=== PATIENT | female | born 1975 | race Caucasian/White ===

== ENCOUNTER 2022-08-08 08:57 | Outpatient (CLI) | payer OTHER, SELFPAY ==
--- NOTE | ~2022-08-08 | MR_ITS ---
MRI of the brain Clinical History: Headache Technique: Axial and sagittal T1-weighted images were acquired. These were followed by axial T2-weigh pillo, diffusion weighted, gradient, and FLAIR images. Findings: No abnormal signal seen in the brain parenchyma. No acute infarct, intracranial hemorrhage, or mass lesion. Ventricles and subarachnoid spaces are unremarkable. Orbits are unremarkable. There is left maxillary sinus disease and bilateral ethmoid sinus disease. There is fluid in bilateral mastoid air cells. Ma timbo intracranial flow voids are intact. Sagittal midline structures are intact. IMPRESSION: No intracranial abnormality. Sinus disease and bilateral mastoid effusions, as detailed above. Reviewed, dictated and finalized at location . UCTION LINE SOLDERER
== END 2022-08-08 08:58 | disposition home or self-care (01) ==
PROVIDERS: PCP Internal Medicine Gastroenterology; Visit Provider Student in an Organized Health Care Education/Training Program
DX: G43.909 Migraine, unspecified, not intractable, without status migrainosus (principal); J32.2 Chronic ethmoidal sinusitis; J32.0 Chronic maxillary sinusitis
CPT/HCPCS: 70551

== ENCOUNTER 2024-01-14 07:44 | Outpatient (CLI) | payer BC, SELFPAY ==
--- NOTE | ~2024-01-14 | MR_ITS ---
EXAMINATION: MR brain/brain stem wo con DATE: 01/14/2024 08:24 INDICATION: Personal history of other healed physical injury. Migraine headache. Syncope. TECHNIQUE: Magnetic resonance imaging (MRI) of the brain and brainstem was performed without intraven ous contrast. COMPARISON: Brain MRI 08/08/2022 FINDINGS: There is no intracranial hemorrhage, acute infarction, or abnormal intracranial mass lesion . The ventricles are normal in size. There is a mucous retention cyst in right maxillary sinus. The o rbits are normal. The mastoid air cells are normal. IMPRESSION: 1. Normal brain. Reviewed, dictated and finalized at location A. IMPRESSION: 1. Normal brain.
== END 2024-01-14 07:45 | disposition home or self-care (01) ==
PROVIDERS: PCP Internal Medicine Gastroenterology; Visit Provider Psychiatry & Neurology Neurology
DX: Z87.828 Personal history of other (healed) physical injury and trauma (principal)
CPT/HCPCS: 70551

== ENCOUNTER 2024-02-01 08:54 | Outpatient (CLI) | payer BC, SELFPAY ==
--- NOTE | 2024-02-01 08:58 | ECHO_ITS ---
Patient Info Name: Una Nye Age: 49 years : 1975 Gender: Female Ht: 67 in Wt: 138 lbs BSA: 1.72 m2 HR: 85 bpm BP: 113 / 81 mmHg Technical Quality: Good Exam Date: 02/01/2024 9:10 AM Exam Location: Echo Lab Patient Status: Outpatient Admit Date: 02/01/2024 Staff Ordering Physician: Tomas Garcia DO Bonbon Dipper: Steffany Nunes RDCS Attending Provider: Tomas Garcia DO Referring Physician: Jose AVALOS; Exam Type: CA echo doppler color flow Study Info Indications R55 - Syncope and collapse Complete two-dimensional, color flow and Doppler transthoracic echocardiogram is performed. Strain analysis performed. Summary 1. Complete two-dimensional, color flow and Doppler transthoracic echocardiogram is performed. 2. Left ventricular chamber dimension is normal. 3. Left ventricular systolic function is normal, estimated at 60-65%. 4. The left ventricular diastolic function is normal. 5. E/e' 6 is not elevated. 6. Global longitudinal strain is normal at -18.8%. 7. There is trace tricuspid valve regurgitation. 8. RVSP is not calcuated due to an inadequate TR jet. 9. Aortic arch has a linear structure seen which could be artifact and less likely dissection. Consider CTA of aorta if clinically indicated. Left Ventricle E/e' 6 is not elevated. Global longitudinal strain is normal at -18.8%. Left ventricular chamber dimension is normal. Left ventricular systolic function is normal, estimated at 60-65%. The left ventricular diastolic function is normal. Right Ventricle Right ventricular chamber dimension is normal. Right ventricular systolic function is normal. Left Atria Left atrial chamber dimension is normal. Right Atria Right atrial chamber dimension is normal. Aortic Valve The aortic valve is trileaflet. There is no aortic valve stenosis. There is no aortic valve regurgitation. Pulmonic Valve There is no pulmonic regurgitation. Mitral Valve There is no mitral valve stenosis. There is no mitral valve regurgitation. Tricuspid Valve There is trace tricuspid valve regurgitation. RVSP is not calcuated due to an inadequate TR jet. Pericardium/Pleural There is no pericardial effusion. Inferior Vena Cava Normal inferior vena cava with >50% collapse upon inspiration consistent with normal right atrial pressure, 5 mmHg. Aorta Aortic arch has a linear structure seen which could be artifact and less likely dissection. Consider CTA of aorta if clinically indicated. The aortic root size at the sinus of Valsalva is normal. Left Ventricular Outflow Tract Name Value Normal LVOT 2D LVOT Diameter 2.0 cm LVOT Doppler LVOT Peak Gradient 4 mmHg LVOT Mean Gradient 3 mmHg LVOT VTI 19 cm LVOT VTI/AV VTI Ratio 0.9 LVOT Stroke Volume 63 ml LVOT CO 4.9 l/min LVOT CI 2.9 l/min/m2 Pulmonic Valve Name Value Normal
== END 2024-02-01 08:55 | disposition home or self-care (01) ==
LOC: ANHCARD 08:56
PROVIDERS: PCP Internal Medicine Gastroenterology; Visit Provider Internal Medicine Cardiovascular Disease
DX: R55 Syncope and collapse (principal)
CPT/HCPCS: 93306

== ENCOUNTER 2024-03-06 10:16 | Outpatient (CLI) | payer BC, SELFPAY ==
--- NOTE | ~2024-03-06 | CT_ITS ---
EXAMINATION: CTA chest DATE: 03/06/2024 11:14 INDICATION: Congenital malformation of the aorta, unspecified. TECHNIQUE: Computed tomographic angiography (CTA) of the chest was performed with 100 mL Omnipaque-35 0 intravenous contrast. Automated exposure control and iterative reconstruction technique were employ ed. The dose-length product was 169.92 mGy-cm. Maximum intensity projection 3D-reconstructions of the aorta and other arteries were constructed by the technologist on a separate workstation. COMPARISON: None. FINDINGS: The lungs demonstrate mild atelectasis. No pleural effusion. There are nodules in the thyro id measuring up to 18 mm on the left. There are size is normal. No pericardial effusion. Thoracic aor ta is normal in caliber. There are changes of cholecystectomy. There is no pulmonary embolus. There i s mild thoracic spondylosis. IMPRESSION: 1. Normal aorta. 2. Multinodular goiter. Consider thyroid ultrasound for risk stratification. Reviewed, dictated and finalized at location A.
== END 2024-03-06 10:17 | disposition home or self-care (01) ==
LOC: ANHIMG 10:18
PROVIDERS: PCP Internal Medicine Gastroenterology; Visit Provider Internal Medicine Cardiovascular Disease
DX: Q25.40 Congenital malformation of aorta unspecified (principal)
CPT/HCPCS: 71275; Q9967

== ENCOUNTER 2024-11-07 07:34 | Outpatient (CLI) | payer BC, SELFPAY ==
--- NOTE | ~2024-11-07 | MM_ITS ---
EXAMINATION: MM screening vin BI w anthony HISTORY: Screening TECHNIQUE: Craniocaudal and mediolateral oblique 3-D tomosynthesis images were obtained and synthetic 2-D images were generated. CAD analysis was submitted and interpreted. COMPARISON: No prior mammogram is available for comparison at this institution. BREAST PARENCHYMAL COMPOSITION: Dense: The breasts are heterogeneously dense, which may obscure small masses FINDINGS: There is no evidence of suspicious mass, calcification, or architectural distortion to sugg est malignancy in either breast. There has been no suspicious interval change. IMPRESSION: 1. No mammographic evidence of malignancy. 2. Recommend routine screening mammography in one year. BI-RADS Category 1: Negative Reviewed, dictated and finalized at location []
--- OUTSIDE RECORDS SUMMARY | 2024-11-07 07:40 | XMS_ITS | Clinical Summary ---
Author Organization [facility] Address [address] [place] [address] Care Team Providers Care Senior Customer Service Representative Name Role Phone Micki Manzano MD Primary Care Provider Allergies No known active allergies Medications acetaminophen (TYLENOL) 325 mg tablet Take 2 tablets (650 mg total) by mouth every 4 (four) hours as needed for pain or fever 30 tablet 1 Active albuterol HFA (PROVENTIL HFA,VENTOLIN HFA,PROAIR HFA) 90 mcg/actuation inhaler Inhale 2 puffs every 4 (four) hours as needed for wheezing or shortness of breath 1 each 3 Active lidocaine (LIDODERM) 5 %Indications:Pa in Place 1 patch on the skin daily Use patch for 12 hours on, 12 hours off. 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/2013 Overview (09/20/2016): NONTOX NODUL GOITER NOS Surgical History Surgery Date Site/Laterality Comments CHOLECYSTECTOMY 2008 Cholecystectomy Medical History Medical History Date Comments Hx Other Medical Hx Other Medical Acute Pancreati tis Anxiety disorder Anxiety Depression Depression Family History Medical History Relation Name Comments Diabetes type II Other Family hist ory of Diabetes -Type 2; Thyroid disease Other Family histo ry of Thyroid disorder; Relation Name Status Comments Other Social History Tobacco Use Types Packs/Day Years Used Date Smoking Tobacco: Every Day Cigarettes Tobacco Cessation:Ready to Q uit: Not Asked; Counseling Given: Not Answered Alcohol Use Standard Drinks/Week Comments No 0 (1 standard drink = 0.6 oz pur e alcohol) Personal Safety Answer Date Recorded Have you ever been in or are you currently in a harmful physical or emotional relationship or is someone making you feel afraid or unsafe? 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 Gender Identity Not on file Sexual Orientation Not on file Obstetrics History Last Filed Vital Signs Vital Sign Reading Time Taken Comments Blood Pressure 94/53 01/06/2024 1:50 AM CDT Pulse 76 01/06/2024 1:50 AM CDT Temperature 36.5 C (97.7 F) 01/05/2024 10:03 PM CDT Respiratory Rate 9 01/06/2024 1:50 AM CDT Oxygen Saturation 95% 01/06/2024 1:50 AM CDT Inhaled Oxygen Concentration - - Weight 64.1 kg (141 lb 5 oz) 01/05/2024 10:03 PM CDT Height 170.2 cm (5' 7 ) 08/29/2023 4:52 PM CDT Body Mass Index 22.13 08/29/2023 4:52 PM CDT Plan of Treatment Health Maintenance Due Date Last Done Comments Breast Cancer Screening-Mammogram 1975 Cervical Cancer Screening 1975 Colon Cancer Screening-Colonoscopy 1975 Depression Screening 1975 Hepatitis C Screening 1975 Regular Well Visit/Exam 18-64 01/24/1992 Pneumococcal vaccine <65 (1 of 2 - PCV) 1993 Zoster Vaccine (1 of 2) 01/24/2024 Covid-19 Vaccine ( season) 2024, 08/24/2020 Influenza Vaccine (Season Ended) 2025 03/28/20, 03/13/2017 DTaP/Tdap/Td Vaccine (3 - Td or Tdap) 09/22/202711/2017, 08/21/2017 Hepatitis B Screening Completed 09/21/2017 Insurance Local Magnet [employer] [facility] Local Magnet PA [facility] Care Teams Senior Customer Service Representative Relationship Specialty Start Date End Date Micki Maznano MD [address] [place] [id number] PCP - General Gastroenterology 01/29/22
--- OUTSIDE RECORDS SUMMARY | 2024-11-07 07:40 | XMS_ITS | Encounter Summary ---
Author Organization [facility] Address [address] [place] [address] Phone Care Team Providers Care Voip Network Engineer Name Role Phone Micki Manzano MD Primary Care Provider Rich Miller MD Unavailable [phone] Reason for Visit * Reason Comments Medication Refill Encounter Details Date Type Department Care Team (Late st Contact Info) Description 06/14/2022 Refill [facility] [address] [address] Rich Miller MD [address] [place] [address] Medication Refill Social History Tobacco Use Types Packs/Day Years Used Date Smoking Tobacco: Every Day Cigarettes Smokeless Tobacco: Never Alcohol Use Standard Drinks/Week Comments Not Currently 0 (1 standard drink = 0.6 oz pur e alcohol) Comments Unknown Sex and Gender Information Value Date Recorded Sex Assigned at Not on file Legal Sex Female 6:40 PM CDT Gender Identity Not on file Sexual Orientation Not on file COVID-19 Exposure Response Date Recorded In the last 10 days, have yo u been in contact with someone who was confirmed or suspected to have Coronavirus/COVID-19? No / Unsure 06/07/2022 11:16 AM SKEET OPERATOR documented as of this encounter Miscellaneous Notes * Telephone Encounter - Chanel Suárez RN - 06/14/2022 2:15 PM CST Refill request from pharmacy, please fill if appropriate T OPERATOR documented in this encounter Plan of Treatment Not on file documented as of this encounter Visit Diagnoses Not on filedocumented in this encounter Care Teams Voip Network Engineer Relationship Specialty Start Date End Date Micki Manzano MD [address] [place] [address] PCP - General Internal Medicine 03/08/22 Rich Miller MD [address] [place] [phone] Consulting Physician Oncology 03/30/22 documented as of this encounter
--- OUTSIDE RECORDS SUMMARY | 2024-11-07 07:40 | XMS_ITS | Referral Summary ---
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 Gender Identity Not on file Sexual Orientation Not on file Last Filed Vital Signs Vital Sign Reading [...] 08/29/2023 4:52 PM CDT Plan of Treatment Not on file [place] [address] [facility] [place] Sub[place] Plan / Payer (Ef fective 2022-Present) Name:Una Nye Relation to Subscriber:Spouse Name:FARHAN JONES Date of :1970 (Home) Address: [address] [place] [address] Payer ID:[id number] (NAIC) Type: OTHER Address: [address] [place] [phone] Care Teams Glycerin Operator Relationship Specialty [place] [address] [place], [place] [phone] PCP - General Gastroenterology 01/29/22
--- OUTSIDE RECORDS SUMMARY | 2024-11-07 07:41 | XMS_ITS | Encounter Summary ---
Author Organization [facility] [[email or web address]] Address [address] [place] [address] Phone Care Team Providers Care Ballpoint Pens Assembler Name Role Phone Micki Manzano MD Primary Care Provider Rich Miller MD Unavailable [phone] Reason for Visit * Reason Comments Medication Refill Encounter Details Date Type Department Care Team (Late st Contact Info) Description 06/18/2023 Refill [facility] [address] [place] [address] Rich Miller MD [address] [place] [phone] Medication Refill Social History Tobacco Use [...] on file Sexual Orientation Not on file documented as of this encounter Miscellaneous Notes * Telephone Encounter - Chanel Suárez RN - 06/19/2023 8:04 AM CST Refill request from pharmacy. Please fill if appropriate. No appointment ET DEVELOPMENT ANALYST documented in this encounter Plan of Treatment Not on file documented as of this encounter Visit Diagnoses Not on filedocumented in this encounter Care Teams Ballpoint Pens Assembler Relationship Specialty Start Date End Date Micki Manzano MD [address] [place] [address] PCP - General Internal Medicine 03/08/22 Rich Miller MD [address] [place] [phone] Consulting Physician Oncology 03/30/22 documented as of this encounter
--- OUTSIDE RECORDS SUMMARY | 2024-11-07 07:41 | XMS_ITS | Encounter Summary ---
Author Organization [facility] Address [address] [place] [address] Phone Care Team Providers Care Water Taxi Boat Mate Name Role Phone Micki Manzano MD Primary Care Provider Rich Miller MD Unavailable [phone] Reason for Visit * Reason Comments Medication Refill Encounter Details Date Type Department Care Team (Late st Contact Info) Description 11/06/2023 Refill [facility] [address] [address] Rich Miller MD [address] [place] [phone] Medication Refill Social History Tobacco Use [...] encounter Miscellaneous Notes * Telephone Encounter - Lulu Jacobs RN - 11/06/2023 12:04 PM CDT Refill request from pharmacy. Patient has not been in clinic since August with no follow-up scheduled. documented in this encounter Plan of Treatment Not on file documented as of this encounter Visit Diagnoses Not on filedocumented in this encounter Care Teams Water Taxi Boat Mate Relationship Specialty Start Date End Date Micki Manzano MD [address] [place] [address] PCP - General Internal Medicine 03/08/22 Rich Miller MD [address] [place] [phone] Consulting Physician Oncology 03/30/22 documented as of this encounter
--- OUTSIDE RECORDS SUMMARY | 2024-11-07 07:41 | XMS_ITS | Patient Health Record ---
Author Organization [facility] Address [address] [place] [address] Care Team Providers Care Cruise Director Name Role Phone Latrice Rendon Primary Care Provider [phone] Reason For Referral No Information Medications Medication SIG (Take, Route, Frequency, Duration) Notes Start Date End Date Status SEROquel 100 MG 2 tablet Orally Once a day for 30 days Active Campral 333 MG 1 tablet Orally Four times a day for 30 days Active Naltrexone HCl 50 MG 1 tablet Orally Onc e a day for 30 days Active Escitalopram Oxalate 20 MG 1 tablet Oral ly Once a day for 30 days Active Propranolol HCl 20 MG 1 tablet Orally Tw ice a day for 30 days Active Procardia XL 90 MG 1 tablet Orally Once a day for 30 days Active BuSpar 15 MG 1 tablet Orally Twic e a day for 30 days Active Social History Tobacco Use: Social History Observation Description Date Details (start date - stop date) Current Smoker NA - NA Dont use, Tobacco Use/Smoking Question Answer Notes Are you a current smoker How often do you smoke cigarettes? every day How many cigarettes a day do you smoke? 21-30 How soon after you wake up d o you smoke your first cigarette? within 5 minutes Are you interested in quitting? Not ready to whitney t Additional Findings: Tobacco User Heavy cigarett e smoker (20-39 cigs/day) Problems Problem Type SNOMED Code ICD Code Onset Dates Problem Status W/U Status Risk Notes Problem 65900728 Alcohol dependence with unspecified alcohol-induced disorder (F10.29) Active confirmed Problem 61727442 Anxiety (F41.9) Active confirmed Problem 254251019 Episode of recurrent major depressive disorder, unspecified depression episode severity (F33.9) Active confirmed Problem 94971324 Essential hypertension (I10) Active confirmed Problem 181928111 Migraine without aura and without status migrainosus, not intractable (G43.009) Active confirmed Plan Of Treatment Future Test Test Name Order Date Test, Urine 08/03/2017 Drug Analysis, Unknown, Qual 08/03/2017 Insurance Providers Payer Name Payer Address Payer Phone Subscriber Number Group Number Insured Name Patient Relationship to Insured Coverage Start Date Coverage End Date [facility] Claims Department [address] [place] [address] [id number] Una Nye Self - patient is the insured 7 Medical (General) History Surgical History Surgery Date(Month/Year) 2008 gallbladder removed 2008 gastric bipass 2010 ERCP 2009 and 2010 bleeding ulcer
--- OUTSIDE RECORDS SUMMARY | 2024-11-07 07:41 | XMS_ITS | Encounter Summary ---
Author Organization [facility] Care Team Providers Care Capacitor Pack Press Operator Name Role Phone Carlos Gupta MD Primary Care Provider [phone] Vikas Dowd MD Primary Care Provider [phone] No, Physician Primary Care Provider [phone] Micki Manzano MD Primary Care Provider Encounter Details Date Type Department Care Team (Latest Contact Info) Description 02/02/2016 Orders Only [facility] ProviderLeandra MD [address] [place] [id number] Social History Tobacco Use Types Packs/Day Years Used Date Smoking Tobacco: Never Assessed Alcohol Use Standard Drinks/Week Comments No 0 (1 standard drink = 0.6 oz pur e alcohol) Comments Unknown Sex and Gender Information Value Date Recorded Sex Assigned at Not on file Legal Sex Female 1:21 AM SUPERVISOR ANODIZING Gender Identity Not on file Sexual Orientation Not on file documented as of this encounter Plan of Treatment Not on file documented as of this encounter Procedures Procedure Name Priority Date/Time Associated Diagnosis Comments SCAN - LABS 02/03/2016 12:00 AM CDT documented in this encounter Results * SCAN - LABS (02/03/2016 12:00 AM CDT) Narrative 02/03/2016 12:00 AM CDT Ordered by an unspecified provider. Historical Provider Final Res ult documented in this encounter Visit Diagnoses Not on filedocumented in this encounter Additional Health Concerns Infection Onset Date Last Indicated Resolved Time COVID: Suspected 02/24/2023 02/24/2023 02/24/2023 10:37 PM CDT documented as of this encounter Care Teams Capacitor Pack Press Operator Relationship Specialty Start Date End Date Carlos Gupta MD PCP - General 11/10/09 02/24/19 Vikas Dowd MD [address] [facility] [address] [address] PCP - General 02/25/19 02/20/21 No, Physician PCP - General 02/21/21 01/28/22 Micki Manzano MD [address] [address] PCP - General Gastroenterology 01/29/22 documented as of this encounter
--- OUTSIDE RECORDS SUMMARY | 2024-11-07 07:41 | XMS_ITS | Clinical Summary ---
Author Organization [facility] Address [address] [place] [address] Care Team Providers Care Wink Cutter Operator Name Role Phone Vikas Dowd MD Primary Care Provider [phone] Source Comments [facility],non-owned Affiliates and Associated Physician Practices is amultiple site organization consisting of ambulatory clinics and hospital sitesin [place], [place], [place] and [place]. This disclosure is being madepursuant to the Care Everywhere program and may not contain all information available regarding this patient. Last updated 18.[facility] Allergies No known active allergies Medications * This document contains information received from the source organization and may not represent a complete record from that organization. * Be aware that medications may not be up to date on this document. Alwaysverify current medications with the patient. topiramate (Topamax) 50 MG tablet Take 50 mg by mouth 2 times daily 2 Active butalbital-aceta minophen-caffein e (Fioricet) 50-325-40 MG tablet Take 1 tablet by mouth 4 times daily as needed 2 Active Loratadine (Claritin) 10 MGIndications:Se asonal Allergic Rhinitis Take 10 mg by mouth once daily Reasons: Hayfever Active omeprazole (PriLOSEC) 40 MG capsuleIndicatio ns:Gastric Ulcer,chronic pancreatitis Take 40 mg by mouth 2 times daily, before breakfast and supper Reasons: Stomach Ulcer, chronic pancreatitis Active Active Problems Problem Noted Date Diagnosed Date Crohn's disease of both smal l and large intestine with fistula 03/29/2022 Major depressive disorder, r ecurrent severe without psychotic features 03/06/2017 Preoperative testing 01/21/2010 Depression 01/21/2010 Anxiety 01/21/2010 Heartburn 01/21/2010 MITZI (obstructive sleep apnea) 01/21/2010 Female stress incontinence 01/21/2010 Morbid obesity 11/25/2009 Immunizations Immunization Administration Dates Next Due INFLUENZA VACCINE, QUADR. (F LUZONE; FLULAVAL; FLUARIX; AFLURIA QUADRIVALENT; 6MO+), 0.5 ML (IIV4) 03/13/2017 Social History Tobacco Use Types Packs/Day Years Used Date Smoking Tobacco: Every Day Cigarettes 1 34 Smokeless Tobacco: Never Tobacco Cessation:Ready to Q uit: Yes; Counseling Given: Yes Comments:quit 1 week ago Alcohol Use Standard Drinks/Week Comments Not Currently 34 (1 standard drink = 0.6 oz pure alcohol) Has been sober for 5+ years. 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 Gender Identity Not on file Sexual Orientation Not on file Last Filed Vital Signs Vital Sign Reading Time Taken Comments Blood Pressure 106/73 03/29/2022 9:08 AM CDT Pulse 94 03/29/2022 9:08 AM CDT Temperature 36.5 C (97.7 F) 03/29/2022 9:08 AM CDT Respiratory Rate 16 03/29/2022 9:08 AM CDT Oxygen Saturation 100% 03/29/2022 9:08 AM CDT Inhaled Oxygen Concentration - - Weight 78.7 kg (173 lb 9.6 oz) 03/29/2022 9:08 A M CDT Height 170.2 cm (5' 7 ) 03/29/2022 9:08 AM CDT Body Mass Index 27.19 03/29/2022 9:08 AM CDT Plan of Treatment Health Maintenance Due Date Last Done Comments COLOGUARD (AGES 45-75) - COLON CA SCREENING 1974 COLON MONITORING 1974 COLONOSCOPY - COLON CA SCREENING 1974 CT COLONOGRAPHY - COLON CA SCREENING 1974 Colorectal Cancer Screening 1974 FIT - COLON CA SCREENING 1974 FLEX SIG - COLON CA SCREENING 1974 MAMMOGRAM 1974 PAP SMEAR 1974 HIV SCREENING 1989 HEPATITIS C SCREENING 01/19/1992 DTAP/TDAP/TD VACCINES (1 - Tdap) 1993 HEPATITIS B VACCINE (1 of 3 - 19+ 3-dose series) 1993 PNEUMOCOCCAL VACCINE 50+ (1 of 2 - PCV) 1993 LIPID TESTING 01/26/2015 01/26/2010 ZOSTER VACCINE (1 of 2) 01/24/2024 COVID-19 VACCINE (3 - season) 2024 04/08/2021, 08/24/2020 DEPRESSION SCREENING 06/18/2024 INFLUENZA VACCINE (Season Ended) 2025 03/13/2017 SCREENING FOR DIABETES 04/03/2025 2, 03/05/2017, 02/16/2010, Additional history exists HIB VACCINE Aged Out No longer eligi ble based on patient's age to complete this topic HPV VACCINE Aged Out No longer eligi ble based on patient's age to complete this topic MENINGOCOCCAL (Group B) VACCINE SHARED DECISION-MAKING Aged Out No longer eligible based on patient's age to complete this topic MENINGOCOCCAL GROUPS A/C/Y/W VACCINE Aged Out No longer eligible based on patient's age to complete this topic Procedures Procedure Name Priority Date/Time Associated Diagnosis Comments HEMOGLOBIN A1C Routine 04/03/2022 11:15 AM CDT Acute pancreatitis, unspecified complication status, unspecified pancreatitis type LIPID PROFILE Routine 01/26/2010 3:30 PM CDT Preoperative Testing Depression Anxiety Heartburn MITZI (Obstructive Sleep Apnea) Urinary Incontinence, Stress Morbid Obesity from Last 3 Months or Most Recently Relevant to Health Maintenance Results * HEMOGLOBIN A1C (04/03/2022 11:15 AM CDT) Hemoglobin A1c 4.9 <=5.6 % 04/03/2022 3:56 PM CDT [facility] Estimated Average Glucose 94 mg/dL 04/03/2022 3:56 PM CDT [facility] Comment: HbA1c Interpretation: Normal : < 5.7% Pre-diabetes: 5.7-6.4% Diabetes: Equal to or greater than 6.5% Test results diagnostic of diabetes should be repeated for confirmation. Treatment target values recommended by ADA and other clinical organizations should be used to evaluate metabolic control in patients. Reference: [place] [employer], Standards of Care in Diabetes -2020 In patients 70 years and older consider HbA1c target range of 7.0-7.5% (Reference: Christopher Greene et al. JAMDA. 2012) The [place] assay for the measurement of HbA1c is a National Glycohemoglobin Standardization Program (NGSP) certified method. Blood BLOOD SPECIMEN / Unknown Lab Venipuncture / Unknown 04/03/2022 11:15 AM CDT 04/03/2022 11:33 AM CDT Anil Najera MD LAB - CHEMISTRY ORDERABLES Final Result Performing Organization Address City/State/[facility] Co de Phone Number [address] [id number] [phone] * LIPID PROFILE (01/26/2010 3:30 PM CDT) [facility] Cholesterol 149 120.0 - 200.0 mg/dl [facility] Triglycerides 165 0.0 - 250.0 mg/dl [facility] HDL Cholesterol 42 >40 mg/dl [facility] LDL Calculated 74.0 mg/dl [facility] Chol HDL Ratio 3.5 [facility] Comment Lipid [facility] Comment: Risk Classification HDL CHOL LDL CHOL TOTAL CHOL According to NCEP (mg/dl) (mg/dL) (mg/dl) Desirable >40 <130 < 200 Borderline/High - 130-159 200-239 High - >159 > 239 The total cholesterol to HDL cholesterol ratio may be used to predict risk for coronary heart disease in untreated patients according to data reported from the [place] Study by Dallas Walton M.D. The predictive value in patients over 60 years of age is uncertain. Risk TOTAL CHOL/HDL RATIO MEN WOMEN 1/2 Average 3.43 3.27 Average 4.97 4.44 2X Average 9.55 7.05 3X Average 23.39 11.04 In Coronary Artery Disease patients, in whom nonpharmacological therapy has failed, the AHA recommends that drug therapy should be prescribed to lower LDL cholesterol to <100mg/dL. Drug therapy may be instituted in patients with HDL <35mg/dL. The reported LDL is a calculated result. For a more precise measurement, a direct LDL test is available, as necessary. BLOOD SPECIMEN / Unknown 01/26/2010 3:30 PM CDT 01/26/2010 3:40 PM CDT us Travis Gilman MD LAB - CHEMISTRY ORDERABLES Fi nal Result [facility] [address] [place] [address] from Last 3 Months or Most Recently Relevant to Health Maintenance Insurance Advance Directives * Full Code (Latest Code Status on File) Date Activated Date Inactivated Comments 03/06/2017 4:44 AM 03/13/2017 4:44 PM * Full Code Date Activated Date Inactivated Comments 02/14/2010 1:20 PM 02/17/2010 5:31 AM Care Teams Wink Cutter Operator Relationship Specialty Start Date End Date Vikas Dowd MD [address] [place] [address] [phone] PCP - General Internal Medicine 03/05/17
--- OUTSIDE RECORDS SUMMARY | 2024-11-07 07:41 | XMS_ITS | Data Portability ---
Author Organization [facility] [place] Address [address] [place] [address] [place] [address] Assessment Encounter Date Assessment Date Assessment LastModified by Organization Details LastModified Time 08/12/2024 08/12/2024 Annual gynecological exam performed. Patient will come back in a year unless there are new symptoms. [email or web address] Not available 08/11/2024 18:16:51 08/27/2024 08/27/2024 Annual gynecological exam performed. Patient will come back in a year unless there are new symptoms. [email or web address] Not available 08/27/2024 09:48:35 Plan of Treatment Reminders Order Date Submit Date Provider Last Modified By Organization Details Last Modified Time Details Appointments None recorded. Lab hormone panel, serum or plasma 2024 025 [facility] (Lab), [address], [place], [address], 5 03:46:50 pap, IG + HR HPV - HPV regardless but if HPV is positive need subtyping 16,18/45 2024 025 [facility] (Lab), [address], [place], [address], 5 17:54:14 urinalysis, dipstick 2024 025 [email or web address] [place], [address], [place], [address], 5 10:33:41 urinalysis, dipstick 2024 [email or web address] [place], [address], [place], [address], 11:26:39 culture, urine 2024 [facility] (Lab), [address], [place], [address], 5 15:44:46 HBsAg (hepatitis B surface Ag), serum 2024 [facility] (Lab), [address], [place], [address], 5 19:11:36 unlisted lab - women's health swab plus, ELOINA 2024 [facility] (Lab), [address], [place], [address], 5 15:44:47 Referral None recorded. Procedures None recorded. Surgeries None recorded. Imaging MAMMO, screening, digital, bilateral 2024 [facility], [address], [place], [address], 5 04:04:41 Medication Orders estradiol 0.05 mg/24 hr semiweekly transdermal patch 2024 [facility][id number], [address], [place], [place], [id number], 13:58:54 progesteron e micronized 100 mg capsule 2024 [facility] #[id number], [address], [place], [place], [id number], 13:58:55 metronidazo le 500 mg tablet 2024 025 [facility] #[id number], [address], [place], [place], [id number], 13:42:54 bupropion HCl XL 150 mg 24 hr tablet, extended release 2024 025 [email or web address] [facility] #[id number], [address], [place], [place], [id number], 12:04:39 Patient TargetsNo targets recorded. Patient InstructionsNo instructions recorded. Reason for Referral None Reported. Results Created Date Observation Date Name Description Value Unit Range Abnormal Flag Note LastModifiedBy Organization Detail LastModifiedTime 08/12/1908/12/2024 HBSAG /HCV/ HIV/R VT hepatitis B surface antigen Non-re active non-re active This assay was perfo rmed using [employer] ratio n reage nts and test kits. Value s obtai arlyn with other assay metho ds or kits canno t be used inter garcía eably . Not Available [facility] (Lab) [address], [place], [address], 08/13/2024 19:11:36 08/12/1908/12/2024 HBSAG /HCV/ HIV/R VT HIV antigen/anti body Nonrea ctive nonrea ctive HIV-1 antig en and HIV-1 /HIV- 2 antib odies were not detec pillo. No labor atory evide nce of HIV infec tion. Not Available [facility] (Lab) [address], [place], [address], 08/13/2024 19:11:36 08/12/1908/12/2024 HBSAG /HCV/ HIV/R VT hepatitis C antibody Non-re active non-re active Antib odies to HCV Not Detec pillo, does not exclu de the possi bilit y of expos ure to HCV. Not Available [facility] (Lab) [address], [place], [address], 08/13/2024 19:11:36 08/12/19 25 08/12/2024 HBSAG /HCV/ HIV/R VT RPR qualitative Nonrea ctive nonrea ctive Not Available [facility] (Lab) [address], [place], [address], 08/13/2024 19:11:36 08/12/19 25 08/12/2024 CULTU RE: URINE result report SEE RESULT S BELOW Test: Cultu re: Urine Speci men Sourc e: Urine - Clean Catch Speci men Type: Urine Speci men Date: 2024 1630 Resul t Date: 20243 Resul t Statu s: Final resul t Abnor mal: No Resul ting Lab: [facility] [address] [facility] [address] Tel: CULTU RE ----- ----- ----- --- No growt h in 1 day (dete ction level of 10,00 0 colon ies / ml.) Not Available [facility] (Lab) [address], [place], [address], 08/14/2024 15:44:46 08/12/19 25 08/12/2024 WOMEN 'S HEALT H SWAB PLUS, ELOINA bacterial vaginosis (bv), tma Negati ve negati ve Not Available [facility] (Lab) [address] [place], [address], 08/14/2024 15:44:47 08/12/19 25 08/12/2024 WOMEN 'S HEALT H SWAB PLUS, ELOINA alexandra species, tma Negati ve negati ve Not Available [facility] (Lab) [address] [place], [address], 08/14/2024 15:44:47 08/12/19 25 08/12/2024 WOMEN 'S HEALT H SWAB PLUS, ELOINA alexandra glabrata, tma Negati ve negati ve Not Available [facility] (Lab) [address] [place], [address], 08/14/2024 15:44:47 08/12/19 25 08/12/2024 WOMEN 'S HEALT H SWAB PLUS, ELOINA trichomonas vaginalis, tma Positi ve negati ve abnormal Not Available [facility] (Lab) [address], [place], [address], 08/14/2024 15:44:47 08/12/19 25 08/12/2024 WOMEN 'S HEALT H SWAB PLUS, ELOINA chlamydia trachomatis, PCR Negati ve negati ve Not Available [facility] (Lab) [address], [place], [address], 08/14/2024 15:44:47 08/12/19 25 08/12/2024 WOMEN 'S HEALT H SWAB PLUS, ELOINA neisseria gonorrhoeae, PCR Negati ve negati ve Bacte rial vagin osis detec ts the follo wing bacte jasmyn assoc iated with bacte rial vagin osis (BV): Lacto bacil jaycob (L. gasse ri, L. crisp atus and L. jense jade), Gardn erell a vagin zachary, and Atopo bium vagin ae. A singl e quali tativ e resul t is repor pillo base on instr ument softw are to deter mine BV posit ninoska or negat ninoska statu s. The Vi da speci es group tests for C. albic ans, C. tropi calis , C. parap shantal is, C. dubli niens is. Testi ng is perfo rmed using the Trans cript ion Media pillo Ampli ficat ion metho d. Tests for Vi da glabr hernan, Trich omona s vagin zachary, Chlam ydia trach omati s, and Neiss eria gonor rhoea e are also inclu ded in this panel . Not Available [facility] (Lab) [address], [place], [address], 08/14/2024 15:44:47 08/12/1908/12/2024 urina lysis , dipst ick Leukocytes - Not Available [facility] [address], [place], [address], 08/12/2024 11:25:59 08/12/19 25 08/12/2024 urina lysis , dipst ick Nitrite - Not Available [facility] [address], [place], [address], 08/12/2024 11:25:59 08/12/1908/12/2024 urina lysis , dipst ick Urobilinogen - Not Available [facility] espinoza [address], [place], [address], 08/12/2024 11:25:59 08/12/19 25 08/12/2024 urina lysis , dipst ick Protein trace Not Available [place] [address], [place], [address], 08/12/2024 11:25:59 08/12/19 25 08/12/2024 urina lysis , dipst ick pH 5 Not Available [facility] [address], [place], [address], 08/12/2024 11:25:59 08/12/19 25 08/12/2024 urina lysis , dipst ick Specific [place] 1.015 Not Available [facility] [address], [place], [address], 08/12/2024 11:25:59 08/12/1908/12/2024 urina lysis , dipst ick Ketone - Not Available [place] [address], [place], [address], 08/12/2024 11:25:59 08/12/19 25 08/12/2024 urina lysis , dipst ick Bilirubin - Not Available Zahra mejia [address], [place], [address], 08/12/2024 11:25:59 08/12/19 25 08/12/2024 urina lysis , dipst ick Glucose - Not Available [place] [address], [place], [address], 08/12/2024 11:25:59 08/12/19 25 08/12/2024 urina lysis , dipst ick Appearance clear Not Available [facility] kari [address], [place], [address], 08/12/2024 11:25:59 08/12/19 25 08/12/2024 urina lysis , dipst ick Color dark yellow Not Available [place] [address], [place], [address], 08/12/2024 11:25:59 08/28/19 25 08/27/2024 FSH, LH, ESTRA DIOL estradiol <5.0 pg/mL This assay was perfo rmed using [employer] ratio n reage nts and test kits. Value s obtai arlyn with other assay metho ds or kits canno t be used inter garcía eably . Femal e Estra diol Range s: Folli cular phase 12.4- 233 pg/mL Ovula tion phase 41.0- 398 pg/mL Lutea l phase 22.3- 341 pg/mL Postm enopa usal <5-13 8 pg/mL Healt hy Pregn ant Women 1st Trime ster 154-3 243 pg/mL 2nd Trime ster 1561- 54590 pg/mL 3rd Trime ster 8525- >3000 0 pg/mL Not Available [facility] (Lab) [address], [place], [address], 08/28/2024 03:46:50 08/28/19 25 08/27/2024 FSH, LH, ESTRA DIOL FSH 126.0 mIU/m L This assay was perfo rmed using [employer] ratio n reage nts and test kits. Value s obtai arlyn with other assay metho ds or kits canno t be used inter [facility] . Femal es Folli cular : 3.5-1 2.5 mIU/m L Ovula tion: 4.7-2 1.5 mIU/m L Lutea l: 1.7-7 .7 mIU/m L Postm enopa use: 25.8- 134.8 mIU/m L Not Available [facility] (Lab) [address] [place], [address], 08/28/2024 03:46:50 08/28/19 25 08/27/2024 FSH, LH, ESTRA DIOL LH 44.2 mIU/m L This assay was perfo rmed using [employer] ratio n reage nts and test kits. Value s obtai arlyn with other assay metho ds or kits canno t be used inter [facility] . Femal es Mid-F ollic ular: 2.4-1 2.6 mIU/m L Mid-C ycle: 14.0- 95.6 mIU/m L Mid-L uteal : 1.0-1 1.4 mIU/m L Postm enopa use: 7.7-5 8.5 mIU/m L Not Available [facility] (Lab) [address] [place], [address], 08/28/2024 03:46:50 08/28/19 25 08/27/2024 IMAGE GUIDE D PAP AND HPV REGAR DLESS image guided Pap, HPV regardless of Pap result SEE RESULT S BELOW abnormal CASE REPOR T: Cytol ogy Gynec ologi abel Repor t Case: [id number] Autho alberta g Provi sandra: Dermo dy, Dana , ANP, [employer] Colle cted: 08/27 1358 Order ing Locat ion: [place] [facility] Recei kate: 08/28 0153 First Scree n: McEdilia de, [place] ret, [place] Rescr een: Meghann Singh Speci men: Scree dory Pap - Image d, Cervi x STATE MENT OF ADEQU ACY: Satis facto ry for evalu ation Trans forma tion zone compo nent prese nt ----- ----- ----- ----- ----- ----- ----- ----- ----- ----- ----- ----- ----- ----- ----- ----- ----- ---- FINAL DIAGN OSIS: Negat ninoska for Intra epith elial Alberto banerjee or Erna rapp (NIL) . Elect jatin lafleur by Meghann sepulveda on 2024 at 1648 CDT ----- ----- ----- ----- ----- ----- ----- ----- ----- ----- ----- ----- ----- ----- ----- ----- ----- ---- HPV RESUL TS: HPV mRNA E6/E7 : Posit ninoska - HPV mRNA Detec pillo HPV GENOT YPE 16 (JASMINE) : Not Detec pillo HPV GENOT YPE 18/45 (JASMINE) : Not Detec pillo NOTE: This high risk HPV mRNA assay detec ts fourt een high- risk HPV types (16, 18, 31, 33, 35, 39, 45, 51, 52, 56, 58, 59, 66, 68) witho ut diffe renti ation . This assay can diffe renti ate HPV 16 from HPV 18/45 , but does not diffe renti ate betwe en HPV 18 and HPV 45. A negat ninoska HPV 16, 18/45 genot ype assay resul t does not exclu de the possi bilit y of cytol ogic abnor malit ies or of futur e or under lying NOÉ 1, NOÉ 3 or cance r. COMME NT: This speci men was revie wed by a Cytot echno logis t and/o r Patho logis t (as indic ated in this repor t) after evalu ation using the Thinp rep Imagi ng Syste m. CLINI ABEL INFOR MATIO N: Menst rual Statu s: LMP (if appli cable ): Clini abel Histo ry/Pr eviou s Pap: Type of Neopl samir (if appli cable ): Signi fican t Clini abel Findi ngs: Other Histo ry: Hormo jose (if appli cable ): PAP EDUCA RANJANA L NOTE: The Pap Test is a scree dory test with an inher ent false negat ninoska rate. Liqui d-bas ed sampl ing may decre ase, but will not elimi belinda, false negat ninoska resul ts. A negat ninoska resul t does not precl ude the prese nce and/o r devel opmen t of disea se, since the prese nce of abnor mal cells in the sampl e depen ds on the locat ion of the lesio n and sampl ing techn ique. Gloria nued regul ar scree dory is the best metho d of cance r preve ntion . If repor pillo cytol ogic findi ng do not corre late with physi abel and/o r histo rical findi ngs, furth er inves tigat ion is recom sly d, as clini haylee mcdaniel nted. Not Available [facility] (Lab) [address], [place], [address], 09/01/2024 17:54:14 08/28/19 25 08/27/2024 urina lysis , dipst ick Leukocytes - Not Available Uday pierce [address], [place], [address], 08/27/2024 10:32:35 08/28/19 25 08/27/2024 urina lysis , dipst ick Urobilinogen - Not Available Meenakshi doran [address], [place], [address], 08/27/2024 10:32:35 08/28/19 25 08/27/2024 urina lysis , dipst ick Protein trace Not Available [address], [place], [address], 08/27/2024 10:32:35 08/28/19 25 08/27/2024 urina lysis , dipst ick pH 5 Not Available [place] [address], [place], [address], 08/27/2024 10:32:35 08/28/19 25 08/27/2024 urina lysis , dipst ick Specific [place] 1.020 Not Available [facility] vicki [address], [place], [address], 08/27/2024 10:32:35 08/28/19 25 08/27/2024 urina lysis , dipst ick Ketone - Not Available [place] [address], [place], [address], 08/27/2024 10:32:35 08/28/19 25 08/27/2024 urina lysis , dipst ick Bilirubin - Not Available [facility] [address], [place], [address], 08/27/2024 10:32:35 08/28/19 25 08/27/2024 urina lysis , dipst ick Glucose - Not Available [place] [address], [place], [address], 08/27/2024 10:32:35 08/28/19 25 08/27/2024 urina lysis , dipst ick Appearance clear Not Available [facility] [address], [place], [address], 08/27/2024 10:32:35 08/28/19 25 08/27/2024 urina lysis , dipst ick Color dark yellow Not Available [facility] [address], [place], [address], 08/27/2024 10:32:35 Result Notes None recorded. Problems Name Problem SNOMED Code Status Onset Date Resolution Date Notes Provider Name and Address Organization Details Recorded Time -zuleima katerina hypertension 81871379 Active 2024 Janay ledesma [facility] 10:10:41 Problem Notes None recorded. Procedures Surgical History Date Name Laterality Status Provider Name and Address Organization Details Recorded Time 025 IUD Removal completed DANA LEES NP [address], [place], [address], [facility] 08/27/2024 10:39:40 025 Date of Last Pap Smear completed Janay Wild [facility] 09/18/2024 13:07:30 022 Date of Last Colonoscopy completed Janay Wild [facility] 09/18/2024 13:37:10 022 colonoscopy completed Janay Wild [facility] 09/18/2024 13:40:28 016 gastric ulcer operation completed Janay Wild [facility] 09/18/2024 13:40:16 012 insertion of biliary stent by ERCP completed Janay Wild [facility] 09/18/2024 13:38:53 010 Gastric Bypass completed Charity Jewell [facility] 08/12/2024 10:56:17 010 insertion of biliary stent by ERCP completed Janay Wild [facility] 09/18/2024 13:38:57 [address]8 [address] Section [address] [facility] 08/12/2024 10:55:54 00[address] Charity [facility] 08/12/2024 10:56:02 000 [facility]/18/2024 13:39:13 996 [facility] 09/18/2024 13:39:09 990 procedure on foot completed [facility] 09/18/2024 13:39:56 Imaging Results None recorded. Procedure Notes None recorded. Medical Equipment None Reported. Allergies No known drug allergies Medications Name Sig Start Date Stop Date Status Note LastModified by Organization Details LastModified Time levocarni murphy and tirzepati de 100mg, 10mg/ml injectabl e #155 INJECT 15 MG SQ WEEKLY 08/12 completed Not Available Not Available Not Available cetirizin e 10 mg tablet TAKE 1 TABLET BY MOUTH EVERY DAY active Not Available Not Available No t Available Procardia XL 30 mg tablet,ex tended release take 1 tablet by oral route every day 02/02 completed Prescrib ed Elsewher e: No Locat ion: [facility] M odify By: bernadette Curran r DateTime : 10/09/19 15 02:13:50 PM Not Available Not Available Not Available vitamin Q81-xzyus in B1 1,000 mcg-100 mg/mL injection solution Take by injectio n route. active Not Available Not Available No t Available metronida zole 0.75 % (37.5 mg/5 gram) vaginal gel insert 1 applicat orful by vaginal route every day at bedtime 08/11 completed Prescrib ed Elsewher e: No Locat ion: [facility] M odify By: [email or web address] Nicholaste r DateTime : 02/03/20 17 01:00:00 PM Not Available Not Available Not Available clonazepa m 0.5 mg tablet TAKE 1 TABLET BY MOUTH TWICE DAILY active Not Available Not Available No t Available fluoroura cil 5 % topical cream APPLY TOPICALL Y TO THE AFFECTED AREA TWICE DAILY FOR 3 WEEKS APPLY TO LEFT CHEEK 08/12 completed Not Available Not Available Not Available estradiol 0.1 mg/24 hr semiweekl y transderm al patch APPLY 1 PATCH TOPICALL Y TO THE SKIN 2 TIMES A WEEK active Not Available Not Available No t Available sumatript an 50 mg tablet TAKE 1 TABLET BY MOUTH 1 TIME active Not Available Not Available No t Available topiramat e 25 mg tablet TAKE 1 TABLET BY MOUTH DAILY active Not Available Not Available No t Available metronida zole 500 mg tablet TAKE 1 TABLET BY MOUTH EVERY 12 HOURS FOR 7 DAYS 09/18 completed Not Available Not Available Not Available ciproflox acin 250 mg tablet TAKE 1 TABLET BY MOUTH TWICE DAILY 08/12 completed Not Available Not Available Not Available estradiol 0.05 mg/24 hr semiweekl y transderm al patch APPLY 1 PATCH TOPICALL Y TO THE SKIN 2 TIMES A WEEK 10/08 completed Not Available Not Available Not Available sulfameth oxazole 800 mg-trimet hoprim 160 mg tablet TAKE 1 TABLET BY MOUTH EVERY 12 HOURS 08/12 completed Not Available Not Available Not Available butalbita l-acetami nophen-ca ffeine 50 mg-325 mg-40 mg tablet TAKE 1 TABLET BY MOUTH FOUR TIMES DAILY NEEDED active Not Available Not Available No t Available Procardia XL 60 mg tablet,ex tended release take 1 tablet by oral route every day 02/02 completed Prescrib chucky Pena e: No Locat ion: [facility] odify By: bernadette fajardo DateTime : 09/01/19 10:30:00 AM Not Available Not Available Not Available dicyclomi ne 20 mg tablet 08/12 completed Not Available Not Available Not Available phenazopy ridine 100 mg tablet TAKE 1 TABLET BY MOUTH THREE TIMES DAILY 08/12 completed Not Available Not Available Not Available cyanocoba thalia (vit B-12) 1,000 mcg/mL injection solution ADMINIST ER 1 ML UNDER THE SKIN 1 TIME EVERY MONTH active Not Available Not Available No t Available prednison e 50 mg tablet 08/12 completed Not Available Not Available Not Available orphenadr ine citrate ER 100 mg tablet,ex tended release 08/12 completed Not Available Not Available Not Available progester one micronize d 200 mg capsule TAKE 1 CAPSULE BY MOUTH EVERY DAY active Not Available Not Available No t Available folic acid 1 mg tablet TAKE 1 TABLET BY MOUTH DAILY active Not Available Not Available No t Available monteluka st 10 mg tablet TAKE 1 TABLET BY MOUTH EVERY DAY 08/12 completed Not Available Not Available Not Available mirtazapi ne 15 mg tablet TAKE 1/2 TABLET AT BEDTIME AND MAY INCREASE TO 1 TABLET AFTER 2 WEEKS active Not Available Not Available No t Available lorazepam 1 mg tablet 08/12 completed Not Available Not Available Not Available methylpre dnisolone 4 mg tablets in a dose pack FOLLOW PACKAGE DIRECTIO NS 08/12 completed Not Available Not Available Not Available Vitamin D2 1,250 mcg (50,000 unit) capsule take 1 capsule by oral route every week 02/02 completed Prescrib ed Elsewher e: No Locat ion: [facility] odify By: bernadette fajardo DateTime : 08/26/19 08:14:32 AM Not Available Not Available Not Available fluticaso ne propionat e 50 mcg/actua tion nasal spray,santo pension USE 1-2 SPRAYS IN EACH NOSTRIL DAILY active Not Available Not Available No t Available naproxen 500 mg tablet 08/12 completed Not Available Not Available Not Available progester one micronize d 100 mg capsule TAKE 1 CAPSULE BY MOUTH EVERY DAY 10/08 completed Not Available Not Available Not Available amoxicill in 875 mg-potass ium clavulana te 125 mg tablet TAKE 1 TABLET BY MOUTH TWICE DAILY 08/12 completed Not Available Not Available Not Available Lexapro 10 mg tablet take 1 tablet by oral route every day 08/12 completed Prescrib ed Elsewher e: No Locat ion: [facility] odify By: ana maria Encount er DateTime : 12/30/19 02:28:49 PM Not Available Not Available Not Available bupropion HCl XL 150 mg 24 hr tablet, extended release TAKE 1 TABLET BY MOUTH EVERY DAY active Not Available Not Available No t Available topiramat e 50 mg tablet TAKE 1 TABLET BY MOUTH DAILY active Not Available Not Available No t Available nitrofura ntoin monohydra te/macroc rystals 100 mg capsule TAKE 1 CAPSULE BY MOUTH EVERY 12 HOURS 08/12 completed Not Available Not Available Not Available Vitamin D active Not Available Not Stephanie ilable Not Available multivita min active Not Available Not Available Not Available Stimulant Laxative Plus 8.6 mg-50 mg tablet TAKE 1 TABLET BY MOUTH EVERY DAY 08/12 completed Not Available Not Available Not Available Aimovig Autoinjec tor 140 mg/mL subcutane ous auto-inje ctor ADMINIST ER 1 ML UNDER THE SKIN MONTHLY active Not Available Not Available No t Available Nurtec ODT 75 mg disintegr ating tablet active Not Available Not Available Not Available Vitals Date Recorded Body height Body mass index (BMI) Body weight Systolic blood pressure Diastolic blood pressure Provider Name and Address Organization Details Last Updated DateTime 08/12/2024 170.18 cm 20.7 kg/m2 10104.19 g 101 mm[Hg] 70 mm[Hg] [facility] 10:41:15 Date Recorded Body height Body mass index (BMI) Body weight Systolic blood pressure Diastolic blood pressure Provider Name and Address Organization Details Last Updated DateTime 08/27/2024 170.18 cm 20.7 kg/m2 61600.19 g 105 mm[Hg] 71 mm[Hg] [facility] 5 10:05:35 Date Recorded Body height Body mass index (BMI) Body weight Systolic blood pressure Diastolic blood pressure Provider Name and Address Organization Details Last Updated DateTime 09/16/2024 170.18 cm 20.8 kg/m2 23043.79 g 93 mm[Hg] 62 mm[Hg] Janay Wild [facility] 5 10:05:55 Social History Question Answer Notes LastModified by Organizat ion Details LastModified Time Tobacco Smoking Status Never Smoker quit smoking 02/2024 [facility] 08/12/2024 10:54:32 Are You Blind Or Do You Have Difficulty Seeing? Yes [email or web address] Information not available 08/12/2024 In The 14 Days Before Symptom Onset, Have You Had Close Contact With A Laboratory-confir med COVID-19 While That Case Was Ill? No [email or web address] Information not available 08/12/2024 In The 14 Days Before Symptom Onset, Have You Had Close Contact With A Person Who Is Under Investigation For COVID-19 While That Person Was Ill? No Information not available 08/12/2024 Have You Been To An Area Known To Be High Risk For COVID-19? No [email or web address] Information not available 08/12/2024 Are You Deaf Or Do You Have Serious Difficulty Hearing? No [email or web address] Information not available 08/12/2024 What Type Of Diet Are You Following? REGULAR [email or web address] Information not available 08/12/2024 What Is The Highest Grade Or Level Of School You Have Completed Or The Highest Degree You Have Received? [id number] [email or web address] Information not available 08/12/2024 Do You Use Your Seat Belt Or Car Seat Routinely? Yes Information not available 08/12/2024 Are You Sexually Active? Yes [email or web address] Information not available 08/12/2024 Do You Have Smoke And Carbon Monoxide Detectors In Your Home? Yes [email or web address] Information not available 08/12/2024 Do You Use Sunscreen Routinely? Yes [email or web address] Information not available 08/12/2024 Do You Have Difficulty Walking Or Climbing Stairs? No [email or web address] Information not available 08/12/2024 Sex: Unknown Functional Status Question Answer Note LastModified by Organizat ion Details LastModified Time What is your level of alcohol consumption? None [email or web address] Information not available 08/12/2024 Are you currently employed? Yes [email or web address] Information not available 08/12/2024 Are you able to walk? YESWOREST [email or web address] Information not available 08/12/2024 Are you able to care for yourself? 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 No [email or web address] Information not available 08/12/2024 Mental Status Question Answer Note LastModified by Organization D etails LastModified Time Do you feel stressed (tense, restless, nervous, or anxious, or unable to sleep at night)? [id number] [email or web address] Information not available 08/12/2024 Family History Relationship Description Onset Age of this Age Resolved Age Notes LastModified by Organization Details LastModified Time Paternal Aunt Malignant tumor of cervix [email or web address] Not available 2024 10:52:59 Paternal Aunt Malignant neoplasm of ovary Not available 2024 10:54:03 Father Heart disease [email or web address] Not available 2024 10:53:12 Father Diabetes mellitus [email or web address] Not available 2024 10:53:21 Father Hypercholest erolemia [email or web address] Not available 2024 10:53:34 Father Hypertensive disorder [email or web address] Not available 2024 10:53:46 Paternal Grandfather Heart disease [email or web address] Not available 2024 10:53:12 Paternal Grandfather Hypercholest erolemia [email or web address] Not available 2024 10:53:34 Paternal Grandfather Hypertensive disorder [email or web address] Not available 2024 10:53:46 Notes:Father: Coagulopathy, Diabetes mellitus Medical History Condition Response Allergies (Food, seasonal, environmental ) Y Other N Breast Cancer N Drug/Latex Allergies/Reactions N Blood Transfusion N Dermatologic Disorders N Lung Disease N Defects or Inherited Disease N Breast Problem N Gestational Diabetes N Hematologic disorders N Anesthesia Complications N History of STI N Deep Vein Thrombosis N Polycystic ovary syndrome N Anxiety Disorder Y Autoimmune disease N Arthritis N Infertility N Polyps N Acid Reflux (GERD) N History of abnormal pap N Cancer N Stroke N Varicosities N Neurologic/Epilepsy N Endometriosis N High Cholesterol N Headaches Y Fibromyalgia N Kidney Disease N Heart Problems N Kidney or Bladder Problems N Thyroid Problems N GI Problems Y Eating Disorder N Anemia N Art (IVF or FET) N Psychiatric Illness N Ovarian Cancer N Diabetes N Pulmonary (TB, Asthma) N Hepatitis/Liver Disease N No Past Medical History N Eczema N Urinary Tract Infection N Abuse/Domestic Violence N Asthma N Trauma/Violence N Depression/ depression Y Heart Disease N Pre-Eclampsia N Hypertension Y Osteoporosis N Thrombophilias N Gynecological History Statement/Question Response Date of Last Colonoscopy 06/18/2021 Date of Last Mammogram Sexually Active? Y STIs/STDs Y Date of DEXA bone scan Age of first menstrual cycle 12 Date of Last Pap Smear 08/27/2024 Current Control Method BCPs Age at First Child 16 Obstetrics History GPAL:G 7 P 5 0 2 5 Type Value Full Term 5 Induced 2 Living 5 Total 7 Past Encounters Encounter ID Performer Location Encounter Start Date Encounter Closed Date Diagnosis/Indication Diagnosis SNOMED-CT Code Diagnosis ICD10 Code Diagnosis Note [id number] Rm Uriostegui MD [facility] [address] [address] 08/12/2024 10:09:20 08/12/2024 12:20:20 Major depressive disorder 529639571 F32.9 Discussed treatment options for chronic anxiety and depression , including risks/bene fits/adver se effects. Discussed that antidepres sants may take 4-6 weeks to become effective. Rx sent for Wellbutrin 150 mg 4 hr tablet, ER to take PO once daily.Ricardo mmended that patient take medication with food.Discu ssed that patient is to go to ER if she experience s any suicidal/h omicidal ideation.P atient to call/RTO in one month if medication not helping or if she has any concerns/q uestions. Patient verbalized understand ing of POC.Recomm ended counseling /therapy in addition to pharmacolo gic treatment. Vaginal discharge [id number] 006 N89.8 Reviewed the various causes of vaginal discharge and vaginitis symptoms, including both infectious (STD's, BV, yeast, others) and noninfecti ous (physiolog ic d/c, irritants/ allergens, DIV, others) causes. Testing for BV/yeast/t rich/CT/GC sent.Will treat empiricall y with metronidaz ole for possible BV/trich. Urine dipstick negative for infection. Will send urine culture to confirm. Patient to [facility] for WWE/preven tative screenings and IUD removal. Venereal d isease screening [id number] Z11.3 Pt requested STI testing.Di scussed the various types of STDs, related symptoms and the potential consequenc es (including effects on fertility) of STD infections . Reviewed ways to limit exposure and prevention techniques . [id number] Rm Uriostegui MD [facility] [address] [address] 08/27/2024 09:46:45 08/27/2024 10:59:00 Gynecologic examination [id number] Z01.419 Annual gynecologi abel exam performed. Patient will come back in a year unless there are new symptoms. Suggest Calcium with Vitamin D if not eating in diet. Patient advised to get annual flu shot. Recommend yearly physicals and perform monthly breast exams. Genetic testing is available for patients with family history of cancer. Engage in safe sexual practices, use condoms. Encouraged to have daily exercise. Avoid tobacco and illicit drugs, moderation of alcohol. If BMI greater than 25 dietary consult advised. If you have any questions please call or email. mammogram- order given, pt to schedule colon cancer screening - UTD PCP DEXA scan- n/a Pap smear- pap w/ HPV collected laboratory evaluation - PCP STI testing - declined Will r/o persistent trichomona s infection with pap smear. Discussed that it is recommende d to retest at 6-7 weeks post antibiotic completion to avoid having a false positive result. Patient verbalized understand ing. Menopausal symptom 27873 002 N95.1 Will check FSH/LH/est radiol to assess for menopause. Patient's Mirena IUD has been for 2 years and has not had a period since then.Discu ssed HRT with estradiol patch and progestero ne (oral or IUD) for post-menop ausal treatment of vasomotor symptoms.N on-hormona l treatment options also discussed. Risks/bene fits/AEs reviewed.P atient prefers to wait for lab results before deciding. Screening mammography [id number] Z12.31 Removal of intrauterine contraceptive device [id number] Z30.432 Mirena IUD removed on 08/27/24 without difficulty .Patient tolerated well. [id number] Rm Uriostegui MD [facility] [address] [address] 09/16/2024 09:37:46 09/16/2024 10:26:50 Menopausal symptom [id number] N95.1 We discussed Menopausal Hormone therapy (MHT) for women with intact uterus with the goals of reliving vaso-motor sx's using estrogen/p rogestin therapy (EPT) using lowest doses for shortest duration in women 40-59yo. Contraindi cations include: Hx of DVT or thrombolic events, High cholestero l, Hx of breast cancer, known CHD, active liver disease, unexplaine d vag bleeding, high risk endometria l cancer, TIA. Side effects can include but are not limited to: Irregular vag bleeding,, breast tenderness , nausea, weight changes, libido changes, nausea. Adverse Rxn: Elevated BP migraine w/ visual changes, breast cancer dx, OR/stroke, DVT/PE, Endometria l cancer. Please contact office with any new or worsening side effects or adverse reactions. Or if a medical emergency please go to nearest ED/[facility] for further evaluation . Rx for estradiol 0.05 mg/24 hr semiweekly transderma l patch and daily oral micronized progestero ne 100 mg capsule.Pa tient to [facility] in 4-6 weeks if she does not feel improvemen t in vasomotor symptoms, or sooner if she has any questions or concerns.P atient verbalized understand ing. Health Concerns Section Related Observation LastModified by Organization Detai ls LastModified Time None Recorded Concern Status LastModified by Organization Details LastModified Time None Recorded Advance Directives Directive None Recorded Payers Encounter Date Sequence Insurance Name Policy Number Policy Arechiga Covered Member ID Arechiga Member ID Guarantor Name 08/12/2024 1 [place] [id number] Monty Jones [id number] 55 Una Nye 08/27/2024 1 [place] [id number] Monty Jones [id number] 55 Una Nye 09/16/2024 1 [place] [id number] Monty Jones [id number] 55 Una Nye Notes Date Note Type Note Provider Name and Address Organization Details Recorded Time 08/12/2024 text/html Annual GYNReport ed bypatient.Menstrua l cycle:No periods Urinary symptoms:No hematuria; No incontinence;Burni ng sensation during urination;Increase d urinary frequency Vulva:No genital lesion Vagina:Foul-smelli ng;Yellow-green, thick;Vaginal burning;Vaginal itching Breast:No breast pain; No breast lump; No nipple discharge Current Contraception:Intr auterine device (iud) Sexual complaints:No sexual complaints; No pain during intercourse; Normal libido Menopausal Symptoms:Normal vaginal lubrication;Hot flashes Psychological symptoms:Depressio n;Anxiety Preventive measures:Encourage self breast examination; Encourage regular exercise; Encourage no tobacco use; Encourage regular mammograms starting age 40 New patient here to est. care and to discuss vaginal concerns.Patient recently had new partner recently (2 weeks ago) and reports green discharge, itching, vaginal odor and irritation. Patient reports pelvic pressure, dysuria, and urinary frequency as well. Patient has history of recurrent UTIs in the past.Patient has not had [employer] care in 10 years, and has an Mirena IUD from 2015. Patient does not have any periods, suspects she is menopausal. Requests that IUD be removed at a future appointment. Patient reports occasional night sweats.Patient reports worsening depression symptoms that have been affecting her everyday life. Patient denies SI/HI. Patient had been on wellbutrin in the past for smoking cessation and did well. Patient currently taking mirtazapine and topamax at bedtime for migraine prevention prescribed by neurologist. Patient does not have history of seizures. DANA LEES NP [address], [place], [address], [facility] 08/12/2024 12:06:59 08/27/2024 text/html Annual Therapeutic Strategy Lead Post-MenopausalRep orted bypatient.Menopaus al Symptoms:normal vaginal lubrication;hot flashes;insomnia due to night sweats Vaginal Bleeding:history of menopause having occurred; no history of post menopausal bleeding Urinary Symptoms:no hematuria; no incontinence; no nocturia; no urinary frequency Vulva:no genital lesion; no vulvar atrophy Vagina:no vaginal atrophy;yellow-gre en, thick Breast:no breast lump; no nipple discharge; no breast pain Sexual Complaints:no sexual complaints Psychological Symptoms:no depression; no anxiety Preventive Measures:encourage regular mammograms starting age 40; encourage self breast examination; encourage regular exercise; encourage no tobacco use Patient here for annual exam.Patient was treated for positive trichomonas 2 weeks ago and finished course of Flagyl. Patient states that she has not been sexually active in several weeks. patient reports still having some green discharge, but not as profuse as before.Patient also c/o hot flashes and night sweats. Patient's Mirena IUD is x 2 years and she has not bled in over 10 years. Patient requests IUD removal today. DANA LEES NP [address], [place], [address], [facility] 08/27/2024 10:56:43 09/16/2024 text/html Patient presents to discuss HRT.Patient c/o hot flashes and insomnia caused by night sweats.Patient reports that she has had no period in two years, and recent labs showed post-menopausal ranges.Patient was considering hormonal IUD and estrogen patch for HRT, but now desires to trial oral progesterone instead of IUD. DANA LEES, LUZ ELENA [address], [place], [address], [facility] 09/16/2024 10:26:19 OBGyn Episode Ob Episode Information Episode Created Date Number of Fetuses Patient Bloodtype Patient rh Status Prepregnancy Weight lbs Domestic Partner Domestic Partner Phone Father Name Resource Economist Status 08/12/19 1 CLOSED Fetus Data First Name Last Name Admitted to NICU Weight (g) Sex Living Outcome Pediatric Complications Fetus ID Race Codes Race Delivery Type 3855.53 2 F Full Term [id number] Vaginal Delivery Johan Calculation Initial Johan Date Initial Exam Date Initial Exam Provider Initial Ultrasound Date Last Menstrual Period Date Ultra Sound Weeks Gestation 0 Eighteen To Twenty Week Johan Update Ultra Sound Date Fundal Height At Umbil Quickening Date Ultra Sound Latest Weeks Gestation Final Johan Confirmed By Final Johan Confirmed Date Final Johan Date Ultra Sound Latest Days Gestation 0 0 Menstrual History Last Menstrual Date Menses Monthly On Bcp Conception Prior Menses Frequency Hcg Plus Date Menarche Onset Age Delivery Information Delivery Date Delivery Type Labor Anesthesia Weeks Gestation Incision Type Labor Labor Length Hrs Delivered By Post Complications Tubal Sterilization Discharge Date Comments 2 43 Discharge Information Feeding Method Contraceptive Method Maternal HG B and HCT Levels Ob Episode Information Episode Created Date Number of Fetuses Patient Bloodtype Patient rh Status Prepregnancy Weight lbs Domestic Partner Domestic Partner Phone Father Name Resource Economist Status 09/17/19 25 1 CLOSED Fetus Data First Name Last Name Admitted to NICU Weight (g) Sex Living Outcome Pediatric Complications Fetus ID Race Codes Race Delivery Type , Induced [id number] Johan Calculation Initial Johan Date Initial Exam Date Initial Exam Provider Initial Ultrasound Date Last Menstrual Period Date Ultra Sound Weeks Gestation 0 Eighteen To Twenty Week Johan Update Ultra Sound Date Fundal Height At Umbil Quickening Date Ultra Sound Latest Weeks Gestation Final Johan Confirmed By Final Johan Confirmed Date Final Johan Date Ultra Sound Latest Days Gestation 0 0 Menstrual History Last Menstrual Date Menses Monthly On Bcp Conception Prior Menses Frequency Hcg Plus Date Menarche Onset Age Delivery Information Delivery Date Delivery Type Labor Anesthesia Weeks Gestation Incision Type Labor Labor Length Hrs Delivered By Post Complications Tubal Sterilization Discharge Date Comments 6 Discharge Information Feeding Method Contraceptive Method Maternal HG B and HCT Levels Ob Episode Information Episode Created Date Number of Fetuses Patient Bloodtype Patient rh Status Prepregnancy Weight lbs Domestic Partner Domestic Partner Phone Father Name Resource Economist Status 08/12/19 1 CLOSED Fetus Data First Name Last Name Admitted to NICU Weight (g) Sex Living Outcome Pediatric Complications Fetus ID Race Codes Race Delivery Type 3912.23 1 F Full Term [id number] Vaginal Delivery Johan Calculation Initial Johan Date Initial Exam Date Initial Exam Provider Initial Ultrasound Date Last Menstrual Period Date Ultra Sound Weeks Gestation 0 Eighteen To Twenty Week Johan Update Ultra Sound Date Fundal Height At Umbil Quickening Date Ultra Sound Latest Weeks Gestation Final Johan Confirmed By Final Johan Confirmed Date Final Johan Date Ultra Sound Latest Days Gestation 0 0 Menstrual History Last Menstrual Date Menses Monthly On Bcp Conception Prior Menses Frequency Hcg Plus Date Menarche Onset Age Delivery Information Delivery Date Delivery Type Labor Anesthesia Weeks Gestation Incision Type Labor Labor Length Hrs Delivered By Post Complications Tubal Sterilization Discharge Date Comments 6 40 Discharge Information Feeding Method Contraceptive Method Maternal HG B and HCT Levels Ob Episode Information Episode Created Date Number of Fetuses Patient Bloodtype Patient rh Status Prepregnancy Weight lbs Domestic Partner Domestic Partner Phone Father Name Resource Economist Status 08/12/19 1 CLOSED Fetus Data First Name Last Name Admitted to NICU Weight (g) Sex Living Outcome Pediatric Complications Fetus ID Race Codes Race Delivery Type 3458.63 9 M Full Term [id number] Vaginal Delivery Johan Calculation Initial Johan Date Initial Exam Date Initial Exam Provider Initial Ultrasound Date Last Menstrual Period Date Ultra Sound Weeks Gestation 0 Eighteen To Twenty Week Johan Update Ultra Sound Date Fundal Height At Umbil Quickening Date Ultra Sound Latest Weeks Gestation Final Johan Confirmed By Final Johan Confirmed Date Final Johan Date Ultra Sound Latest Days Gestation 0 0 Menstrual History Last Menstrual Date Menses Monthly On Bcp Conception Prior Menses Frequency Hcg Plus Date Menarche Onset Age Delivery Information Delivery Date Delivery Type Labor Anesthesia Weeks Gestation Incision Type Labor Labor Length Hrs Delivered By Post Complications Tubal Sterilization Discharge Date Comments 5 38 Discharge Information Feeding Method Contraceptive Method Maternal HG B and HCT Levels Ob Episode Information Episode Created Date Number of Fetuses Patient Bloodtype Patient rh Status Prepregnancy Weight lbs Domestic Partner Domestic Partner Phone Father Name Resource Economist Status 08/12/19 1 CLOSED Fetus Data First Name Last Name Admitted to NICU Weight (g) Sex Living Outcome Pediatric Complications Fetus ID Race Codes Race Delivery Type 3061.74 6 F Full Term [id number] Primary Johan Calculation Initial Johan Date Initial Exam Date Initial Exam Provider Initial Ultrasound Date Last Menstrual Period Date Ultra Sound Weeks Gestation 0 Eighteen To Twenty Week Johan Update Ultra Sound Date Fundal Height At Umbil Quickening Date Ultra Sound Latest Weeks Gestation Final Johan Confirmed By Final Johan Confirmed Date Final Johan Date Ultra Sound Latest Days Gestation 0 0 Menstrual History Last Menstrual Date Menses Monthly On Bcp Conception Prior Menses Frequency Hcg Plus Date Menarche Onset Age Delivery Information Delivery Date Delivery Type Labor Anesthesia Weeks Gestation Incision Type Labor Labor Length Hrs Delivered By Post Complications Tubal Sterilization Discharge Date Comments 8 38 Discharge Information Feeding Method Contraceptive Method Maternal HG B and HCT Levels Ob Episode Information Episode Created Date Number of Fetuses Patient Bloodtype Patient rh Status Prepregnancy Weight lbs Domestic Partner Domestic Partner Phone Father Name Resource Economist Status 09/17/19 1 CLOSED Fetus Data First Name Last Name Admitted to NICU Weight (g) Sex Living Outcome Pediatric Complications Fetus ID Race Codes Race Delivery Type , Induced [id number] Johan Calculation Initial Johan Date Initial Exam Date Initial Exam Provider Initial Ultrasound Date Last Menstrual Period Date Ultra Sound Weeks Gestation 0 Eighteen To Twenty Week Johan Update Ultra Sound Date Fundal Height At Umbil Quickening Date Ultra Sound Latest Weeks Gestation Final Johan Confirmed By Final Johan Confirmed Date Final Johan Date Ultra Sound Latest Days Gestation 0 0 Menstrual History Last Menstrual Date Menses Monthly On Bcp Conception Prior Menses Frequency Hcg Plus Date Menarche Onset Age Delivery Information Delivery Date Delivery Type Labor Anesthesia Weeks Gestation Incision Type Labor Labor Length Hrs Delivered By Post Complications Tubal Sterilization Discharge Date Comments 0 Discharge Information Feeding Method Contraceptive Method Maternal HG B and HCT Levels Ob Episode Information Episode Created Date Number of Fetuses Patient Bloodtype Patient rh Status Prepregnancy Weight lbs Domestic Partner Domestic Partner Phone Father Name Resource Economist Status 08/12/19 1 CLOSED Fetus Data First Name Last Name Admitted to NICU Weight (g) Sex Living Outcome Pediatric Complications Fetus ID Race Codes Race Delivery Type M Full Term [id number] Vaginal Delivery Johan Calculation Initial Johan Date Initial Exam Date Initial Exam Provider Initial Ultrasound Date Last Menstrual Period Date Ultra Sound Weeks Gestation 0 Eighteen To Twenty Week Johan Update Ultra Sound Date Fundal Height At Umbil Quickening Date Ultra Sound Latest Weeks Gestation Final Johan Confirmed By Final Johan Confirmed Date Final Johan Date Ultra Sound Latest Days Gestation 0 0 Menstrual History Last Menstrual Date Menses Monthly On Bcp Conception Prior Menses Frequency Hcg Plus Date Menarche Onset Age Delivery Information Delivery Date Delivery Type Labor Anesthesia Weeks Gestation Incision Type Labor Labor Length Hrs Delivered By Post Complications Tubal Sterilization Discharge Date Comments 5 40 Discharge Information Feeding Method Contraceptive Method Maternal HG B and HCT Levels
--- OUTSIDE RECORDS SUMMARY | 2024-11-07 07:41 | XMS_ITS | Clinical Summary ---
Author Organization [facility] Address [address] [place] [address] Phone Care Team Providers Care Honey Blender Name Role Phone Micki Manzano MD Primary Care Provider Rich Miller MD Unavailable [phone] Allergies No known active allergies Medications butalbital-pauline taminophen-caf feine (FIORICET, ESGIC) 50-325-40 MG Tablet 2 Active cyanocobalamin (VITAMIN B-12) 1000 MCG/ML Solution by Intramuscular route every 30 days. Active lidocaine (LIDODERM) 5 % Patch UNWRAP AND APPLY 1 PATCH DAILY. ALLOW A 12 HOUR PATCH FREE PERIOD 2 Active Topiramate 50 MG Tablet Take 1 Tablet by mouth 2 times daily. 2 Active Aimovig 70 MG/ML Solution Auto-injector ADMINISTER 1 ML UNDER THE SKIN MONTHLY 2 Active omeprazole (PriLOSEC) 40 MG CAPSULE DELAYED RELEASE Take 40 mg by mouth. Active azithromycin (ZITHROMAX) 250 MG Tablet 3 Active SUMAtriptan (IMITREX) 50 MG Tablet TAKE 1 TABLET BY MOUTH 1 TIME 3 Active montelukast (SINGULAIR) 10 MG Tablet Take 10 mg by mouth daily. 3 Active clonazePAM (KlonoPIN) 0.5 MG Tablet Take 0.5 mg by mouth 2 times daily. 3 Active buPROPion, Smoking Deter, (ZYBAN) 150 MG TABLET SR 12 HR Take 150 mg by mouth 2 times daily. 3 Active cetirizine (ZyrTEC) 10 MG Tablet Take 10 mg by mouth daily. Active folic acid (FOLVITE) 1 MG Tablet TAKE 1 TABLET BY MOUTH DAILY 30 Tablet 3 4 Active Active Problems Problem Noted Date Diagnosed Date Iron deficiency anemia 03/27/2022 Family History Medical History Relation Name Comments Diabetes Father Hypertension Father Other-comment Father ateriorsclerot ic disease Stroke Father Diabetes Sister Emphysema Sister Heart Disease Sister Stroke Sister Relation Name Status Comments Father Sister Social History Tobacco Use Types Packs/Day Years Used Date Smoking Tobacco: Every Day Cigarettes Smokeless Tobacco: Never Tobacco Cessation:Ready to Q uit: Not Asked; Counseling Given: Not Answered Alcohol Use Standard Drinks/Week Comments Not Currently 0 (1 standard drink = 0.6 oz pur e alcohol) Comments Unknown Sex and Gender Information Value Date Recorded Sex Assigned at Not on file Legal Sex Female 6:40 PM CDT Gender Identity Not on file Sexual Orientation Not on file Last Filed Vital Signs Vital Sign Reading Time Taken Comments Blood Pressure 122/70 09/11/2022 9:07 AM CDT Pulse 80 09/11/2022 9:07 AM CDT Temperature 36.7 C (98 F) 09/11/2022 9:07 AM CDT Respiratory Rate 18 09/11/2022 9:07 AM CDT Oxygen Saturation 99% 09/11/2022 9:07 AM CDT Inhaled Oxygen Concentration - - Weight 68.8 kg (151 lb 9.6 oz) 09/11/2022 9:07 A M CDT Height 170.2 cm (5' 7 ) 09/11/2022 9:07 AM CDT Body Mass Index 23.74 09/11/2022 9:07 AM CDT Plan of Treatment Health Maintenance Due Date Last Done Comments Hepatitis C Virus (HCV) Screening 1974 Mammogram 1974 Pap Smear 1995 Cervical Cancer Screening (CCS) 01/24/2004 HPV/Cotest 01/24/2004 Hepatitis B Immunization (2 of 3 - 19+ 3-dose series) 10/19/2017 09/21/2017 Colonoscopy 2019 Colorectal Cancer Screening 2019 Cologuard 01/24/2024 Immunochemical Fecal Occult Blood 01/24/2024 Zoster Immunization (1 of 2) 01/24/2024 Influenza Immunization (#1) 02/17/202404/19, 03/13/2017 SARS-COV-2 Immunization ( season) 2024 04/08/2021, 08/24/2020 Respiratory Syncytial Virus (RSV) Immunization (Adult) (1 - 1-dose 75+ series) 2049 TdaP Immunization Completed 08/21/2017 DTaP/Tdap/Td Immunization Discontinued 2017, 08/21/2017 Pneumococcal Immunization (5 0+ years) Completed 05/28/2022 Pneumococcal Immunization Combined Discontinued 05/28/2022 Meningococcal Immunization (ACWY) Aged Out No longer eligible based on patient's age to complete this topic Rotavirus Immunization Aged Out No lo nger eligible based on patient's age to complete this topic Insurance [facility] MEDICAID [place] Care Teams Honey Blender Relationship Specialty Start Date End Date Micki Manzano MD [address] [place] [address] PCP - General Internal Medicine 03/08/22 Rich Miller MD [address] [place] [phone] Consulting Physician Oncology 03/30/22
--- OUTSIDE RECORDS SUMMARY | 2024-11-07 07:41 | XMS_ITS | Data Portability ---
Author Organization [facility] Address [address] [place] [address] Care Team Providers Care Aviation Medicine Specialist Name Role Phone MICKI MANZANO Primary Care Provider [phone] Assessment No assessment recorded. Plan of Treatment Reminders Order Date Submit Date Provider Last Modified By Organization Details Last Modified Time Details Appointments None recorded. Lab TSH + free T4, serum 2024 025 [facility], [address], [place], [address], 5 08:55:37 CBC 2024 025 DIO [facility], [address], [place], [address], 5 08:55:39 iron + TIBC + ferritin, serum 2024 025 [facility], [address], [place], [address], 5 08:55:40 cobalamin and folate panel, serum 2024 025 DIO [facility], [address], [place], [address], 5 08:55:38 TSH + free T4, serum 2023 024 [facility], [address] [place], [place] [address]pepper Vargas, [address], [place], [address], 4 10:14:14 culture, urine 2023 024 [facility], [address] [place] [address], [address], [place], [address], 4 06:16:36 urinalysis, complete 2023 024 [facility], [address] [place] [address], [address], [place], [address], 4 10:14:16 drug screen, 14 drugs (detectimed ), urine 2023 024 [facility], [address] [place] [address], [address], [place], [address], 4 19:09:42 Referral None recorded. Procedures None recorded. Surgeries None recorded. Imaging US, thyroid 2023 024 [facility] ([facility]), [address], [place], [address], 4 15:53:21 Medication Orders cyanocobala min (vit B-12) 1,000 mcg/mL injection solution 2024 025 [facility] #[id number], [address], [place], [place], [id number], 5 12:31:25 clonazepam 0.5 mg tablet 2024 025 [facility] #72733, [address], [place], [place], [id number], 5 12:31:26 cyanocobala min (vit B-12) 1,000 mcg/mL injection solution 2024 025 [facility] #71450, [address], [place], [place], [id number], 5 18:06:18 cetirizine 10 mg tablet 2024 025 [facility] #22974, [address], [place], [place], [id number], 5 18:06:19 clonazepam 0.5 mg tablet 2024 025 [facility] #64425, [address], [place], [place], [id number], 5 18:06:18 clonazepam 0.5 mg tablet 2023 024 [facility] #54386, [address], [place], [place], [id number], 4 11:10:45 clonazepam 0.5 mg tablet 2023 024 [facility] #76574, [address], [place], [place], [id number], 4 15:14:15 butalbital- acetaminoph en-caffeine 50 mg-325 mg-40 mg tablet 2022 023 [facility] #80129, [address], [place], [place], [id number], 3 16:46:21 Patient TargetsNo targets recorded. Patient Instructions Encounter Date Encounter Id Patient Instructions Last Modified By Organization Details Last Modified Time 10/03/2022 [id number] eating healthy foods: care instructions [email or web address] Not available 10/03/2022 16:46:13 12/31/2023 [id number] thyroid nodules: care instructions [email or web address] Not available 12/31/2023 15:13:25 deciding about using medicines to quit smoking [email or web address] Not available 12/31/2023 15:13:25 Quitting Tobacco : Care Instructions Not available 12/31/2023 15:13:25 fainting: care instructions [email or web address] Not available 12/31/2023 15:13:26 lightheadedness or faintness: care instructions Not available 12/31/2023 15:13:25 learning about anxiety disorders Not available 12/31/2023 15:13:25 07/29/2024 [id number] cough: care instructions [email or web address] Not available 07/29/2024 18:06:12 10/27/2024 [id number] deciding about using medicines to quit smoking [email or web address] Not available 10/27/2024 12:31:18 Quitting Tobacco : Care Instructions [email or web address] Not available 10/27/2024 12:31:17 anemia: care instructions [email or web address] Not available 10/27/2024 12:31:17 Reason for Referral None Reported. Results Created Date Observation Date Name Description Value Unit Range Abnormal Flag Note LastModifiedBy Organization Detail LastModifiedTime 09/19/1909/23/2022 COMPL IANCE DRUG MARLA SIS, UR summary report (summary) FINAL ===== ===== ===== ===== ===== ===== ===== ===== ===== ===== ===== ===== ===== === TOXAS SURE COMP DRUG MARLA SIS,U R ===== ===== ===== ===== ===== ===== ===== ===== ===== ===== ===== ===== ===== === Test Resul t Flag Units Drug Prese nt 7-ami noclo nazep am 130 ng/mg creat 7-ami noclo nazep am is an expec pillo metab olite of clona zepam . Sourc e of clona zepam is a sched uled presc ripti on medic ation . Topir amate PRESE NT Bupro pion PRESE NT [place] xybup ropio n PRESE NT [place] xybup ropio n is an expec pillo metab olite of bupro trinity. ===== ===== ===== ===== ===== ===== ===== ===== ===== ===== ===== ===== ===== === Test Resul t Flag Units Ref Range Creat inine 40 mg/dL >=20 ===== ===== ===== ===== ===== ===== ===== ===== ===== ===== ===== ===== ===== === Decla red Medic ation s: Medic ation list was not provi ded. ===== ===== ===== ===== ===== ===== ===== ===== ===== ===== ===== ===== ===== === For clini abel consu ltati on, pleas e call . ===== ===== ===== ===== ===== ===== ===== ===== ===== ===== ===== ===== ===== === Not Available [facility] ([facility]) [address] [facility], [place], [address], 09/23/2022 11:10:32 09/19/19 23 09/23/2022 COMPL IANCE DRUG MARLA SIS, UR pdf . Not Available [facility] ([facility]) [address] [facility], [place], [address], 09/23/2022 11:10:32 12/31/19 24 01/01/2024 TSH+F REE T4 TSH 1.140 uIU/m L 0.450- 4.500 Not Available [facility] ([facility]) [address] [facility], [place], [address], 01/01/2024 10:14:14 12/31/19 24 01/01/2024 TSH+F REE T4 T4,free(dire ct) 1.05 NG/dL 0.82-1 .77 Not Available [facility] ([facility]) [address] [facility], [place], [address], 01/01/2024 10:14:14 12/31/19 24 01/01/2024 MICRO SCOPI C EXAMI NATIO N WBC 11-30 /hpf 0-5 abnormal Not Available [facility] ([facility]) [address] [facility], [place], [address], 01/01/2024 10:14:15 12/31/19 24 01/01/2024 MICRO SCOPI C EXAMI NATIO N RBC 0-2 /hpf 0-2 Not Available [facility] ([facility]) [address] [facility], [place], [address], 01/01/2024 10:14:15 12/31/19 24 01/01/2024 MICRO SCOPI C EXAMI NATIO N epithelial cells (non renal) 0-10 /hpf 0-10 Not Available [facility] ([facility]) [address] [facility], [place], [address], 01/01/2024 10:14:15 12/31/19 24 01/01/2024 MICRO SCOPI C EXAMI NATIO N casts None seen /lpf nonese en Not Available [facility] ([facility]) [address] [facility], [place], [address], 01/01/2024 10:14:15 12/31/19 24 01/01/2024 MICRO SCOPI C EXAMI NATIO N bacteria Modera te nonese en/few abnormal Not Available [facility] ([facility]) [address] [place], [address], 01/01/2024 10:14:15 12/31/19 24 01/01/2024 URINA LYSIS , COMPL ETE specific gravity 1.010 1.005- 1.030 Not Available [facility] ([facility]) [address] [facility], [place], [address], 01/01/2024 10:14:16 12/31/19 24 01/01/2024 URINA LYSIS , COMPL ETE pH 7.0 5.0-7. 5 Not Available [facility] ([facility]) [address] [facility], [place], [address], 01/01/2024 10:14:16 12/31/19 24 01/01/2024 URINA LYSIS , COMPL ETE urine-color YELLOW yellow Not Available [facility] ([facility]) [address] [place], [address], 01/01/2024 10:14:16 12/31/19 24 01/01/2024 URINA LYSIS , COMPL ETE appearance CLEAR clear Not Available [facility] ([facility]) [address] [place], [address], 01/01/2024 10:14:16 12/31/19 24 01/01/2024 URINA LYSIS , COMPL ETE WBC esterase 2+ negati ve abnormal Not Available [facility] ([facility]) [address] [place], [address], 01/01/2024 10:14:16 12/31/19 24 01/01/2024 URINA LYSIS , COMPL ETE protein NEGATI VE negati ve/tra ce Not Available [facility] ([facility]) [address] [place], [address], 01/01/2024 10:14:16 12/31/19 24 01/01/2024 URINA LYSIS , COMPL ETE glucose NEGATI VE negati ve Not Available [facility] ([facility]) [address] [place], [address], 01/01/2024 10:14:16 12/31/19 24 01/01/2024 URINA LYSIS , COMPL ETE ketones NEGATI VE negati ve Not Available [facility] ([facility]) [address] [facility], [place], [address], 01/01/2024 10:14:16 12/31/19 24 01/01/2024 URINA LYSIS , COMPL ETE occult blood NEGATI VE negati ve Not Available [facility] ([facility]) [address] [facility], [place], [address], 01/01/2024 10:14:16 12/31/19 24 01/01/2024 URINA LYSIS , COMPL ETE bilirubin NEGATI VE negati ve Not Available [facility] ([facility]) [address] [facility], [place], [address], 01/01/2024 10:14:16 12/31/19 24 01/01/2024 URINA LYSIS , COMPL ETE urobilinogen ,semi-qn 0.2 mg/dL 0.2-1. 0 Not Available [facility] ([facility]) [address] [facility], [place], [address], 01/01/2024 10:14:16 12/31/19 24 01/01/2024 URINA LYSIS , COMPL ETE nitrite, urine NEGATI VE negati ve Not Available [facility] ([facility]) [address] [facility], [place], [address], 01/01/2024 10:14:16 12/31/19 24 01/01/2024 URINA LYSIS , COMPL ETE microscopic examination SEE BELOW: Micro scopi c was indic ated and was perfo rmed. Not Available [facility] ([facility]) [address] [place], [address], 01/01/2024 10:14:16 12/31/19 24 01/02/2024 URINE CULTU RE, ROUTI NE urine culture, routine FINAL REPORT Not Available [facility] ([facility]) [address] [facility], [place], [address], 01/02/2024 06:16:36 12/31/19 24 01/02/2024 URINE CULTU RE, ROUTI NE result 1 NO GROWTH Not Available [facility] ([facility]) [address] [facility], [place], [address], 01/02/2024 06:16:36 12/31/19 24 01/08/2024 COMPL IANCE DRUG MARLA SIS, UR summary report (summary) FINAL ===== ===== ===== ===== ===== ===== ===== ===== ===== ===== ===== ===== ===== === TOXAS SURE COMP DRUG MARLA SIS,U R ===== ===== ===== ===== ===== ===== ===== ===== ===== ===== ===== ===== ===== === Test Resul t Flag Units Drug Prese nt Topir amate PRESE NT ===== ===== ===== ===== ===== ===== ===== ===== ===== ===== ===== ===== ===== === Test Resul t Flag Units Ref Range Creat inine 32 mg/dL >=20 ===== ===== ===== ===== ===== ===== ===== ===== ===== ===== ===== ===== ===== === Decla red Medic ation s: Medic ation list was not provi ded. ===== ===== ===== ===== ===== ===== ===== ===== ===== ===== ===== ===== ===== === For prema roman consu ltati on, pleas e call . ===== ===== ===== ===== ===== ===== ===== ===== ===== ===== ===== ===== ===== === Not Available [facility] ([facility]) [address] [facility], [place], [address], 01/08/2024 19:09:42 12/31/19 24 01/08/2024 COMPL IANCE DRUG MARLA SIS, UR pdf . Not Available [facility] ([facility]) [address] [facility], [place], [address], 01/08/2024 19:09:42 03/05/20 24 03/10/2024 PROTH ROMBI N TIME, INR prothrombin time 11.0 sec Refer ence Range : 18 years and older : 9.1 - 12.0 Not Available [facility] [address] [place], [address], 03/10/2024 19:08:16 03/05/20 24 03/10/2024 PROTH ROMBI N TIME, INR INR 1.0 ratio Refer ence Range : >1 month : 0.9 - 1.2 Not Available [facility] [address] [place], [address], 03/10/2024 19:08:16 03/05/20 24 03/06/2024 CBC, PLATE LET, NO DIFFE RENTI AL WBC 5.7 x10e3 /uL 3.4-10 .8 Not Available [facility] [address] [place], [address], 03/10/2024 19:08:17 03/05/2003/06/2024 CBC, PLATE LET, NO DIFFE RENTI AL RBC 3.85 x10e6 /uL 3.77-5 .28 Not Available [facility] [address] [place], [address], 03/10/2024 19:08:17 03/05/2003/06/2024 CBC, PLATE LET, NO DIFFE RENTI AL hemoglobin 12.5 g/dL 11.1-1 5.9 Not Available [facility] [address] [place], [address], 03/10/2024 19:08:17 03/05/2003/06/2024 CBC, PLATE LET, NO DIFFE RENTI AL hematocrit 37.4 % 34.0-4 6.6 Not Available [facility] [address] [place], [address], 03/10/2024 19:08:17 03/05/2003/06/2024 CBC, PLATE LET, NO DIFFE RENTI AL MCV 97 fL 79-97 Not Available [facility] [address] [place], [address], 03/10/2024 19:08:17 03/05/2003/06/2024 CBC, PLATE LET, NO DIFFE RENTI AL MCH 32.5 pg 26.6-3 3.0 Not Available [facility] [address] [place], [address], 03/10/2024 19:08:17 03/05/2003/06/2024 CBC, PLATE LET, NO DIFFE RENTI AL MCHC 33.4 g/dL 31.5-3 5.7 Not Available [facility] [address] [place], [address], 03/10/2024 19:08:17 03/05/20 24 03/06/2024 CBC, PLATE LET, NO DIFFE ROLDAN AL RDW 12.5 % 11.7-1 5.4 Not Available [facility] [address] [place], [address], 03/10/2024 19:08:17 03/05/20 24 03/06/2024 CBC, PLATE LET, NO DIFFE RENTI AL platelets 254 x10e3 /uL 150-45 0 Not Available [facility] [address] [place], [address], 03/10/2024 19:08:17 10/28/1910/28/2024 TSH+F REE T4 TSH 0.620 uIU/m L 0.450- 4.500 Not Available [facility] ([facility]) [address] [place], [address], 10/28/2024 08:55:37 10/28/1910/28/2024 TSH+F REE T4 T4,free(dire ct) 1.13 NG/dL 0.82-1 .77 Not Available [facility] ([facility]) [address] [place], [address], 10/28/2024 08:55:37 10/28/1910/28/2024 VITAM IN B12 AND FOLAT E vitamin B12 1193 pg/mL 232-12 45 Not Available [facility] ([facility]) [address] [place], [address], 10/28/2024 08:55:38 10/28/1910/28/2024 VITAM IN B12 AND FOLAT E folate (folic acid), serum >20.0 NG/mL >3.0 A serum folat e carl ntrat ion of less than 3.1 ng/mL is consi dered to repre sent clini abel defic iency . Not Available [facility] ([facility]) [address] [place], [address], 10/28/2024 08:55:38 10/28/1910/28/2024 CBC, PLATE LET, NO DIFFE RENTI AL WBC 5.5 x10e3 /uL 3.4-10 .8 Not Available [facility] ([facility]) [address] [facility], [place], [address], 10/28/2024 08:55:39 10/28/1910/28/2024 CBC, PLATE LET, NO DIFFE RENTI AL RBC 4.21 x10e6 /uL 3.77-5 .28 Not Available [facility] ([facility]) [address] [facility], [place], [address], 10/28/2024 08:55:39 10/28/1910/28/2024 CBC, PLATE LET, NO DIFFE RENTI AL hemoglobin 13.0 g/dL 11.1-1 5.9 Not Available [facility] ([facility]) [address] [facility], [place], [address], 10/28/2024 08:55:39 10/28/1910/28/2024 CBC, PLATE LET, NO DIFFE RENTI AL hematocrit 39.9 % 34.0-4 6.6 Not Available [facility] ([facility]) [address] [facility], [place], [address], 10/28/2024 08:55:39 10/28/1910/28/2024 CBC, PLATE LET, NO DIFFE RENTI AL MCV 95 fL 79-97 Not Available [facility] ([facility]) [address] [place], [address], 10/28/2024 08:55:39 10/28/1910/28/2024 CBC, PLATE LET, NO DIFFE RENTI AL MCH 30.9 pg 26.6-3 3.0 Not Available [facility] ([facility]) [address] [place], [address], 10/28/2024 08:55:39 10/28/19 25 10/28/2024 CBC, PLATE LET, NO DIFFE RENTI AL MCHC 32.6 g/dL 31.5-3 5.7 Not Available [facility] ([facility]) [address] [place], [address], 10/28/2024 08:55:39 10/28/19 25 10/28/2024 CBC, PLATE LET, NO DIFFE RENTI AL RDW 12.6 % 11.7-1 5.4 Not Available [facility] ([facility]) [address] [place], [address], 10/28/2024 08:55:39 10/28/19 25 10/28/2024 CBC, PLATE LET, NO DIFFE RENTI AL platelets 234 x10e3 /uL 150-45 0 Not Available [facility] ([facility]) [address] [place], [address], 10/28/2024 08:55:39 10/28/1910/28/2024 FE+TI BC+FE R iron bind.cap.(TI BC) 278 ug/dL 250-45 0 Not Available [facility] ([facility]) [address] [place], [address], 10/28/2024 08:55:40 10/28/19 25 10/28/2024 FE+TI BC+FE R UIBC 192 ug/dL 131-42 5 Not Available [facility] ([facility]) [address] [place], [address], 10/28/2024 08:55:40 10/28/19 25 10/28/2024 FE+TI BC+FE R iron 86 ug/dL 27-159 Not Available [facility] ([facility]) [address] [place], [address], 10/28/2024 08:55:40 10/28/19 25 10/28/2024 FE+TI BC+FE R iron saturation 31 % 15-55 Not Available [facility] ([facility]) [address] [facility], [place], [address], 10/28/2024 08:55:40 10/28/19 25 10/28/2024 FE+TI BC+FE R ferritin 42 NG/mL 15-150 Not Available [facility] ([facility]) [address] [facility], [place], [address], 10/28/2024 08:55:40 01/14/20 24 01/14/2024 MRI, brain + brain stem, w/o contr ast No observ ation record ed. [address] [address], [place], [address], 01/14/2024 10:29:36 01/18/20 24 01/18/2024 US, thyro id No observ ation record ed. [facility] [address] [place], [address], 01/27/2024 22:27:15 02/01/20 24 02/01/2024 trans -thor acic echoc ardio gram (TTE) (PROC ) No observ ation record ed. [address] [facility] [place], [address], 02/02/2024 04:58:01 03/06/20 24 03/06/2024 CT, angio gram, chest , w/ contr ast No observ ation record ed. [address], [place], [address], 03/10/2024 10:25:10 03/07/20 24 03/06/2024 CT, angio gram, chest , w/ contr ast No observ ation record ed. [address] [address], [place], [address], 03/10/2024 10:25:30 03/10/20 24 03/10/2024 fine needl e aspir ation , ultra sound guide d, thyro id (PROC ) No observ ation record ed. DIO [facility] Special Procedures Only [address] [place], [address], 03/12/2024 07:24:03 Result Notes None recorded. Problems Name Problem SNOMED Code Status Onset Date Resolution Date Notes Provider Name and Address Organization Details Recorded Time Chronic diarrhea 557433906 Active 2021 Micki Manzano MD Attn: Rao sol,[address], [place], [address], [facility] 2 11:43:29 History of bypass of stomach 854670519 Active 2021 Micki Manzano MD Attn: Rao sol,[address] [facility], [place], [address], [facility] 2 11:43:59 Family history of diabetes mellitus 018334089 Active 2021 Micki Manzano MD Attn: Rao sol,[address] [facility], [place], [address], [facility] 2 11:44:43 Tobacco dependen ce syndrome 14933948 Completed 202110/27/2024 Micki Manzano MD Attn: Rao sol,[address] [facility], [place], [address], [facility] 5 12:25:48 Obesity 516813491 Active 2021 Micki Manzano MD Attn: Rao sol,[address] [facility], [place], [address], [facility] 2 11:46:53 Migraine 86414912 Active 2021 Micik Manzano MD Attn: Rao sol,[address] [facility], [place], [address], [facility] 2 11:47:06 History of alcohol abuse 437595886 Active 2021 Micki Manzano MD Attn: Rao sol,[address], [place], [address], [place] [facility] 2 11:50:44 History of pancreat itis 67035090910 107 Active 2021 Micki Manzano MD Attn: Rao sol,[address], [place], [address], [place] [facility] 2 11:51:52 Pain of head and neck region 604751942 Active 2021 Right Micki Manzano MD Attn: Rao sol,[address], [place], [address], [place] [facility] 2 11:52:45 Anemia 667809552 Active 2021 Micki Manzano MD Attn: Rao sol,[address], [place], [address], [place] [facility] 2 12:09:06 Snoring symptoms 559123385 Active 2021 Micki Manzano MD Attn: Rao sol,[address], [place], [address], [place] [facility] 2 12:18:51 Iron deficien cy anemia 44337807 Active 2021 Micki Manzano MD Attn: Rao sol,[address], [place], [address], [place] [facility] 2 02:08:08 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 2021 Diarrhea Micki Manzano MD Attn: Rao sol,[address], [place], [address], [place] [facility] 2 10:53:09 Sinusiti s 26881197 Active 2021 Micki Manzano MD Attn: Rao sol,[address], [place], [address], [place] [facility] 2 11:26:37 Family cara 804843793 Active 2021 Micki Manzano MD Attn: Rao sol,[address] [facility], [place], [address], [place] [facility] 2 02:47:09 Medicati on monitori ng Active 2022 Micki Manzano MD Attn: Rao sol,[address] [facility], [place], [address], [place] [facility] 3 15:25:15 Syncope 932536514 Active 2023 Micki Manzano MD Attn: Rao sol,[address] [facility], [place], [address], [place] [facility] 4 15:05:40 Anxiety disorder 526779177 Active 2023 Micki Manzano MD Attn: Rao sweta,[address] [facility], [place], [address], [place] [facility] 4 15:07:00 Thyroid nodule 507296269 Active 2023 Micki Manzano MD Attn: Corazonpaige sol,[address] [facility], [place], [address], [place] [facility] 4 15:09:04 Lower urinary tract infectio us disease 1429210 Active 2023 Micki Manzano MD Attn: Rao sweta,[address] [place], [address], [place] [facility] 4 15:14:17 Lower urinary tract symptoms 112879756 Active 2023 Micki Manzano MD Attn: Rao sweta,[address] [place], [address], [place] [facility] 4 05:21:12 Multinod ular goiter 010926148 Active 2023 Micki Manzano MD Attn: Rao sweta,[address] [place], [address], [place] [facility] 4 00:01:34 Pre-surg matt evaluati on Active 2023 Micki Manzano MD Attn: Rao sol,[address] [facility], [place], [address], [facility] 4 05:33:32 Cough 46108413 Active 2024 Micki Manzano MD Attn: Rao sol,[address] [facility] [facility], [place], [address], [facility] 5 18:04:48 Ex-smoke r 9546597 Active 2023 Micki Manzano MD Attn: Rao sol,[address] [facility], [place], [address], [facility] 5 12:24:48 Problem Notes None recorded. Procedures Surgical History Date Name Laterality Status Provider Name and Address Organization Details Recorded Time 07/10/19 Cerumen removal without microscope completed Domi Hilario MD - [facility] 07/10/2022 15:24:09 cholecystectomy completed Jeainne Carpio MA MD - [facility] 11/10/2021 11:07:37 Caesarean Section completed Jeanine Carpio MA [facility] 11/10/2021 11:08:08 Imaging Results Imaging Date Name Status LastModified by Organization Details LastModified Time 01/14/2024 MRI, brain + brain stem, w/o contrast completed [address] [place] [address], [address], 01/14/2024 10:29:36 01/18/2024 US, thyroid completed [facility] [address] [place], [address], 01/27/2024 22:27:15 02/01/2024 trans-thoracic echocardiogram (TTE) (PROC) completed [address], [place], [address], 02/02/2024 04:58:01 03/06/2024 CT, angiogram, chest, w/ contrast completed [address], [place], [address], 03/10/2024 10:25:10 03/06/2024 CT, angiogram, chest, w/ contrast completed [address], [place], [address], 03/10/2024 10:25:30 03/10/2024 fine needle aspiration, ultrasound guided, thyroid (PROC) completed [facility] Special Procedures Only [address] [place], [address], 03/12/2024 07:24:03 Procedure Notes None recorded. Medical Equipment None Reported. Allergies No known drug allergies Medications Name Sig Start Date Stop Date Status Note LastModified by Organization Details LastModified Time levocarniti ne and tirzepatide 100mg, 10mg/ml injectable #155 INJECT 15 MG SQ WEEKLY active Not Available Not Available No t Available cyclobenzap rine 10 mg tablet TAKE 1 TABLET BY MOUTH TWICE DAILY NEEDED FOR MUSCLE SPASMS active Not Available Not Available No t Available bupropion HCl SR 150 mg tablet,12 hr sustained-r elease TAKE 1 TABLET BY MOUTH TWICE DAILY active Not Available Not Available No t Available cetirizine 10 mg tablet TAKE 1 TABLET BY MOUTH EVERY DAY active Not Available Not Available No t Available azithromyci n 250 mg tablet TAKE 2 TABLETS (500 MG) BY ORAL ROUTE ONCE DAILY FOR 1 DAY THEN 1 TABLET (250 MG) BY ORAL ROUTE ONCE DAILY FOR 4 DAYS 10/03 completed Not Available Not Available Not Available prednisone 20 mg tablet TAKE 3 TABLETS BY MOUTH DAILY FOR 5 DAYS 08/28 completed Not Available Not Available Not Available clonazepam 0.5 mg tablet Take 1 tablet twice a day by oral route. 2024 active Not Available Not Available Not Avai lable propranolol ER 60 mg capsule,24 hr,extended release TAKE 1 CAPSULE BY MOUTH EVERY DAY 10/03 completed Not Available Not Available Not Available fluorouraci l 5 % topical cream APPLY TOPICALLY TO THE AFFECTED AREA TWICE DAILY FOR 3 WEEKS APPLY TO LEFT CHEEK active Not Available Not Available No t Available estradiol 0.1 mg/24 hr semiweekly transdermal patch APPLY 1 PATCH TOPICALLY TO THE SKIN 2 TIMES A WEEK active Not Available Not Available No t Available clindamycin HCl 150 mg capsule 10/03 completed Not Available Not Available Not Available sumatriptan 50 mg tablet TAKE 1 TABLET BY MOUTH 1 TIME active Not Available Not Available No t Available penicillin V potassium 500 mg tablet TAKE 1 TABLET BY MOUTH FOUR TIMES DAILY FOR 10 DAYS 08/28 completed Not Available Not Available Not Available topiramate 25 mg tablet TAKE 1 TABLET BY MOUTH DAILY active Not Available Not Available No t Available metronidazo le 500 mg tablet TAKE 1 TABLET BY MOUTH EVERY 12 HOURS FOR 7 DAYS 10/27 completed Not Available Not Available Not Available ciprofloxac in 250 mg tablet TAKE 1 TABLET BY MOUTH TWICE DAILY 02/27 completed Not Available Not Available Not Available estradiol 0.05 mg/24 hr semiweekly transdermal patch APPLY 1 PATCH TOPICALLY TO THE SKIN 2 TIMES A WEEK active Not Available Not Available No t Available sulfamethox azole 800 mg-trimetho prim 160 mg tablet TAKE 1 TABLET BY MOUTH EVERY 12 HOURS 10/27 completed Not Available Not Available Not Available hydrocodone 10 mg-acetamin ophen 325 mg tablet TAKE 1 TABLET BY MOUTH EVERY 6 HOURS NEEDED FOR PAIN 09/30 completed Not Available Not Available Not Available butalbital- acetaminoph en-caffeine 50 mg-325 mg-40 mg tablet TAKE 1 TABLET BY MOUTH FOUR TIMES DAILY NEEDED active Not Available Not Available No t Available ketorolac 10 mg tablet TAKE 1 TABLET BY MOUTH EVERY 6 HOURS NEEDED FOR PAIN active Not Available Not Available No t Available prednisone 10 mg tablets in a dose pack FOLLOW PACKAGE DIRECTION S 07/31 completed Not Available Not Available Not Available amoxicillin 875 mg tablet TAKE 1 TABLET BY MOUTH TWICE DAILY 07/10 completed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
--- OUTSIDE RECORDS SUMMARY | 2024-11-07 07:41 | XMS_ITS | Continuity of Care Document ---
Author Organization [facility] Address [address] [place] [address] Phone Care Team Providers Care Cup Machine Operator Name Role Phone Conversion MD, Doctor Unavailable Unavailabl e Medications Medication Instructions Dosage Effective Dates (start - stop) Status Comments CYCLOBENZAPRINE HCL 10MG TABS 1 Q 8HR - Active VIOXX 25MG TABS 1 QD - Active AMOXICILLIN 500MG CAPS 1 TID - No Longer Active ZEPHREX-LA 600-120MG TABS 1 BID - No Longer Active AUGMENTIN 875-125MG TABS 1 BID Feb - No Longer Active Advance Directives Directive Yes / No Effective Date File Name No Information Encounters Encounter Description Practice Location Reason(s) For Visit Diagnoses Date Provider Providers Copied on Encounter [facility], [address], [place], [place], [id number], tel:[phone] Conversion Department No Information 1 Conversion Doctor. [address] [place] [address], [address], . [facility], [address], [place], [place], [id number], tel:[phone] [facility] ACUTE SINUSITIS NOS 4 Conversion Doctor. Formerly [facility] [place], [address], . [facility], [address], [place], [place], [id number], tel:[phone] [facility] ACUTE PHARYNGITIS 4 Ernestina Ulloa. [address], [place], [place], [address], [place]. tel:[phone] [facility], [address], [place], [place], [address], tel:[phone] [facility] SPRAIN OF ANKLE NECJOINT EFFUSION-ANKLE 6-200 2 Cizek Laila. [address], [place], [place], [address], [place]. tel:[phone] [facility], [address], [place], [place], [address], tel:[phone] [facility] URINARY FREQUENCY 1-200 2 Cizek Laila. [address], [place], [place], [address], [place]. tel:[phone] [facility], [address], [place], [place], [address], tel:[phone] [facility] DIZZINESS AND GIDDINESS 9-200 1 Cizek Laila. [address], [place], [place], [address], [place]. tel:[phone] [facility], [address], [place], [place], [address], tel:[phone] [facility] SCREEN-BLOOD DIS NOSURIN TRACT INFECTION NOSANXIETY STATE NOS 7-200 0 Cizek Laila. [address], [place], [place], [address], [place]. tel:[phone] [facility], [address], [place], [place], [address], tel:[phone] [facility] SEBACEOUS CYST 6-199 9 Cizek Laila. [address], [place], [place], [address], [place]. tel:[phone] [facility], [address], [place], [place], [address], tel:[phone] [facility] ALLERGIC RHINITIS NOSCELLULITIS OF BUTTOCK 7-199 9 Cizek Laila. [address], [place], [place], [address], [place]. tel:[phone] Family History Family Member Type Diagnosis Age At Onset No Information Payers Payer name Insurance type Covered green party ID Authoriza tion(s) No Information Social History Type Description Quantity Date Captured Comments Sex Female Smoking Status No Information Chief Complaint And Reason For Visit No Information Reason For Referral Reason For Referral No Information History Of Present Illness Encounter Date Complaint History Of Prese nt Illness No Information Functional Status Date Functional Assessmen t No Information Instructions Date Instruction Additional Infor mation No Information Assessments Type Assessment Date No Information Patient Care Teams Name Effective Dates (start - stop) Status Members No Information
== END 2024-11-07 07:35 | disposition home or self-care (01) ==
LOC: ANHIMG 07:38
PROVIDERS: PCP Internal Medicine Gastroenterology; Visit Provider Student in an Organized Health Care Education/Training Program
DX: Z12.31 Encounter for screening mammogram for malignant neoplasm of breast (principal)
CPT/HCPCS: 77063; 77067